=== PATIENT | male | born 1950 | race Caucasian/White ===

== ENCOUNTER → 2016-07-31 | Outpatient (CLI) | payer OTHER, MEDICARE ==
[~2016-07-31] VITALS: Ht 175.3 cm; Wt 111.1 kg
[~2016-07-31] MED LIST: CATHETER FLUSH 10 ML SYR IV PRN; REGADENOSON 0.4 MG/5 ML SYR (LEXISCAN) IV ONE
[2016-07-31 08:57] VITALS: BP 176/81
[2016-07-31 09:07] VITALS: BP 136/64
[2016-07-31 09:09] VITALS: BP 159/76
--- NOTE | 2016-08-01 08:39 | ECHOCARDIOGRAPHY REPORT ---
PROCEDURE PHYSICIAN: ILIA BAIRD DATE OF PROCEDURE: 07/31/2016 TWO DIMENSIONAL ECHOCARDIOGRAM REPORT PRIMARY PHYSICIAN: OTHER PHYSICIAN: REFERRING PHYSICIAN: Dr. Ignacio ORDERING PHYSICIAN: INDICATION FOR THE PROCEDURE: MEASUREMENTS DERIVED VALUES LV DIAMETER (LAX) NORMALS NORMALS Diastolic 5 (3.6-5.2) Eject. Fract. 60% (60%+/-6%) Systolic (2.3-3.9) Diastolic Vol. % Shortening (0.22-0.42) Systolic Vol. Aortic Root IVS THICKNESS Diastolic 1.3 (0.6-1.1) LVPW THICKNESS Diastolic 1.3 (0.6-1.1) LA DIAMETER Systolic 5 (2.1-3.7) FINDINGS: 1. Technical quality is good. 2. The left ventricle is normal in size with moderate left ventricular hypertrophy noted diffusely. Systolic function appeared to be normal. Estimated ejection fraction 60%. 3. The left atrium is dilated. No clot or thrombus were seen within the left atrium. 4. The right atrium and right ventricle are normal in size. No clot or thrombus were seen within the right side. 5. Mitral valve is normal in morphology with mild mitral regurgitation noted by color Doppler flow. No mitral valve prolapse. No mitral valve stenosis. 6. Aortic valve leaflets were not well visualized. No significant aortic stenosis or regurgitation was seen. 7. Tricuspid valve is normal in morphology with mild tricuspid regurgitation noted by color Doppler flow. Doppler across the tricuspid valve estimated the pulmonary artery pressure of 18+ right atrial pressure. 8. Pulmonic valve is functioning normally. 9. No pericardial effusion. IN CONCLUSION: 1. Moderate left ventricular hypertrophy noted diffusely. Systolic function appeared to be normal. Estimated ejection fraction 60%. 2. Mild mitral and tricuspid regurgitation. 3. Estimated pulmonary artery pressure of 25 mmHg. Job ID: [id number] Dictated Date: 08/01/2016 08:02:00 It Service Technician Date: 08/01/2016 08:36:43 / jaclyn
--- NOTE | 2016-08-02 08:49 | STRESS TEST ---
PROCEDURE PHYSICIAN: ILIA BAIRD DATE OF PROCEDURE: 07/31/2016 NUCLEAR MYOVIEW REPORT: REFERRING PHYSICIAN: Dr. Ignacio IN SUMMARY: The patient was injected with 10.83 mCi of technetium 99 Myoview and the resting images were obtained. Then the patient received a stress dose of 33 mCi of technetium 99 Myoview. The test was supervised by Dr. Ignacio. The resting and stress images were reviewed and compared in the short axis, horizontal long axis, and vertical long axis views. Review of the images showed diaphragmatic attenuation with good radiotracer uptake, typical male pattern. No significant ischemia or infarction was seen. SSS is 1, TID value 1.03. On the gated images, the left ventricle appeared to be normal size with normal contractility. Calculated ejection fraction 56%. IN CONCLUSION: 1. Typical male pattern with no ischemia or infarction on SPECT images. 2. Normal left ventricular size with normal contractility. Calculated ejection fraction 56%. Job ID: [id number] Dictated Date: 08/01/2016 16:58:56 Wall Taper Date: 08/02/2016 08:46:43 / jaclyn
== END ==
LOC: CARD 07:16
PROVIDERS: ATTEND Internal Medicine
DX: I10 Essential (primary) hypertension (principal); R53.83 Other fatigue
CPT/HCPCS: 78452; 93017; 93306

== ENCOUNTER 2016-09-06 09:00 | Outpatient (CLI) | payer OTHER, MEDICARE ==
[~2016-09-06] VITALS: Ht 175.3 cm; Wt 111.1 kg
[2016-09-06] MEDS ORDERED: VENL150C PO (09:21)
[2016-09-06] MEDS ORDERED: HYDR50TA76 PO (09:21)
[2016-09-06] MEDS ORDERED: LEVO1CAP11 PO (09:21)
[2016-09-06] MEDS ORDERED: ACYC400T PO (09:21)
[2016-09-06] MEDS ORDERED: PENI500T PO (09:21)
[2016-09-06] MEDS ORDERED: DOXA8TAB73 PO (09:21)
[2016-09-06] MEDS ORDERED: NYST50002 PO (09:21)
[2016-09-06] MEDS ORDERED: FLUC100T6 PO (09:21)
[2016-09-06] MEDS ORDERED: LOSA100T28 PO (09:21)
[2016-09-06] MEDS ORDERED: THYR65TA5 PO (09:21)
[2016-09-06] MEDS ORDERED: POTA10TA14 PO (09:21)
[2016-09-07] MEDS ORDERED: HYDR-3812 PO (10:01)
[2016-09-07] MEDS ORDERED: HYDR-3924 PO (13:23)
[2016-09-07] MEDS ORDERED: OMEG-160 PO (13:23)
== END 2016-09-06 09:34 ==
LOC: PREOP 09:00
PROVIDERS: ATTEND Surgery
DX: Z01.818 Encounter for other preprocedural examination (principal); K80.20 Calculus of gallbladder without cholecystitis without obstruction

== ENCOUNTER 2016-09-07 07:27 | Day surgery (SDC) | payer OTHER, MEDICARE ==
[~2016-09-07] VITALS: Ht 175.3 cm; Wt 111.1 kg
[~2016-09-07 07:27] MED LIST changes: +ACYC400T PO; -CATHETER FLUSH 10 ML SYR IV PRN; +DOXA8TAB73 PO; +FLUC100T6 PO; +HYDR50TA76 PO; +LEVO1CAP11 PO; +LOSA100T28 PO; +NYST50002 PO; +PENI500T PO; +POTA10TA14 PO; -REGADENOSON 0.4 MG/5 ML SYR (LEXISCAN) IV ONE; +THYR65TA5 PO; +VENL150C PO
--- NOTE | 2016-09-07 07:52 | Progress Note-Pre Operative ---
Pre-Operative Progress Note H&P Reviewed The H&P was reviewed, patient examined and no changes noted. Date H&P Reviewed: September 07, 2016 Time H&P Reviewed: 07:52 Pre-Operative Diagnosis: Gallstone LAUREN ARDON MD September 07, 2016 7:52 am
[2016-09-07] MEDS ORDERED: BUP/EPI 0.25% 1:200,000 (MARCAINE) 30 ML VIAL ONE (07:57)
[2016-09-07 08:10] VITALS: BP 170/89
[2016-09-07] MEDS: LACTATED RINGERS 1,000 ML IV PRN ×2 (08:10→08:34)
[2016-09-07] MEDS ORDERED: ceFAZolin 2 GM/NS 50 ML IV ONE (08:15)
[2016-09-07] MEDS ORDERED: metroNIDAZOLE 500 MG/100 ML IVPB (PRE-MIX) IV ONE (08:15)
[2016-09-07 08:18] LABS: RED BLOOD COUNT 4.28 10^6/uL (4.35-5.85); RED CELL DISTRIBUTION WIDTH 14.3 % (10.0-14.5); WHITE BLOOD COUNT 6.1 10^3/uL (4.3-11.0)
[2016-09-07] MEDS ORDERED: MIDAZOLAM 2 MG/2 ML (VERSED) VIAL ONE (08:38)
[2016-09-07] MEDS ORDERED: LACTATED RINGERS 1,000 ML IV ONE ×2 (08:38→09:32)
[2016-09-07] MEDS ORDERED: SUCCINYLCHOLINE INJ 100 MG/5 ML SYR ONE (08:38)
[2016-09-07] MEDS ORDERED: LIDOCAINE PF 2% 10 ML (XYLOCAINE) AMP ONE (08:38)
[2016-09-07] MEDS ORDERED: fentaNYL INJECTION 100 MCG/2 ML AMP ONE (08:38)
[2016-09-07] MEDS ORDERED: proPOfol 200 MG/20 ML (DIPRIVAN) VIAL IV ONE (08:38)
[2016-09-07] MEDS ORDERED: ONDANSETRON 4 MG/2 ML (SDV) Z0FRAN ONE (08:38)
[2016-09-07] MEDS ORDERED: ROCURONIUM 50 MG/5 ML (ZEMURON) VIAL IV ONE (08:38)
[2016-09-07 08:46] LABS: ALBUMIN 3.9 G/DL (3.2-4.5); BILIRUBIN,TOTAL 0.9 MG/DL (0.1-1.0); CALCIUM 9.1 MG/DL (8.5-10.1); CREATININE SERUM 1.62 MG/DL (0.60-1.30); POTASSIUM 3.9 MMOL/L (3.6-5.0); TOTAL PROTEIN 6.8 G/DL (6.4-8.2)
[2016-09-07] MEDS ORDERED: GLYCOPYRROLATE 0.2 MG/ML (ROBINUL) 2 ML VIAL ONE (09:50)
[2016-09-07] MEDS ORDERED: SEVOFLURANE (ULTANE) 15 ML INHAL SOLN ONE (09:50)
[2016-09-07] MEDS ORDERED: NEOSTIGMINE (BLOXIVERZ ) 1 MG/1ML 10 ML VIAL ONE (09:50)
--- NOTE | 2016-09-07 09:57 | Progress Note-Post Operative ---
Post-Operative Progess Note Surgeon (s)/Pick Up Worker (s) Surgeon LAUREN ARDON MD Pick Up Worker: not applicable Pre-Operative Diagnosis Gallstone Post-Operative Diagnosis gallstone. Chronic cholecystitis Procedure & Operative Findings Date of Procedure 09/07/16 Procedure Performed/Findings robotic-assisted cholecystectomy Anesthesia Type Gen. Estimated Blood Loss Estimated blood loss (mL): minimal Specimens/Packing Specimens Removed gallbladder LAUREN ARDON MD September 07, 2016 9:57 am
[2016-09-07] MEDS ORDERED: LACTATED RINGERS 1,000 ML IV SCH (09:58)
[2016-09-07] MEDS ORDERED: PATIENT MAY USE OWN MEDS, ALL PO SCH (10:00)
[2016-09-07] MEDS ORDERED: ONDANSETRON 4 MG/2 ML (SDV) Z0FRAN IVP PRN ×2 (10:00→10:15)
[2016-09-07] MEDS ORDERED: fentaNYL INJECTION 100 MCG/2 ML AMP IV PRN (10:00)
[2016-09-07] MEDS ORDERED: HYDR-3812 PO (10:01)
--- NOTE | 2016-09-07 10:02 | Discharge Inst-Simple/Standard ---
Discharge Inst-Standard Discharge Medications New, Converted or Re-Newed RX: RX on Chart Patient Instructions/Follow Up Plan of Care/Instructions/FU: incentive spirometry. Dressings off in a.m. Follow-up in 3 weeks Activity as Tolerated: Yes Discharge Diet: No Restrictions LAUREN ARDON MD September 07, 2016 10:02 am
[2016-09-07] MEDS ORDERED: fentaNYL INJECTION 100 MCG/2 ML AMP IVP PRN (10:15)
[2016-09-07 12:04] VITALS: BP 167/82
[2016-09-07] MEDS ORDERED: HYDR-3924 PO (13:23)
[2016-09-07] MEDS ORDERED: OMEG-160 PO (13:23)
--- NOTE | 2016-09-07 13:27 | OPERATIVE REPORT ---
DATE OF SERVICE: 09/07/2016 PREOPERATIVE DIAGNOSIS: Gallstone. POSTOPERATIVE DIAGNOSES: 1. Gallstone. 2. Chronic cholecystitis OPERATION: Robotic-assisted cholecystectomy. SURGEON: Lauren Ardon MD ANESTHESIA: General. BLOOD LOSS: Minimal. FLUIDS: 1400 mL of crystalloid. TYPE OF WOUND: Type 2 (clean-contaminated wound). INDICATION FOR PROCEDURE: This gentleman presented with a large gallstone impacted in the neck of the gallbladder with very minimal symptoms. To avoid complications, he was offered cholecystectomy using minimally invasive technique with robotic assistance. Informed consent was obtained after reviewing the operation in details and complications of wound infection and bile leak. DESCRIPTION OF PROCEDURE: He was placed supine on the operating room table and general anesthesia induced using an endotracheal tube. Two grams of Ancef and 500 mg of Flagyl were administered intravenously as prophylaxis against wound infection. Sequential compression devices were placed around his legs, to minimize the risk of venous thrombosis. Abdomen was prepared and draped in the usual sterile manner. Pneumoperitoneum was established using a Veress needle introduced over the supraumbilical region. Intraabdominal pressure was maintained at 15 mmHg using carbon dioxide insufflation. A 12 mm trocar was placed and anatomy visualized using the three-dimensional, high-definition laparoscope associated with Da Rober system. Under direct view, I placed an 8 mm cannula over each side of the abdomen, followed by a 5 mm trocar in the left upper quadrant. The patient was then turned into reverse Trendelenburg position with the right side tilted above. The robotic system was then docked in place. Laparoscopic survey onfirmed the gallbladder with chronic thickening due to chronic cholecystitis. The fundus was retracted cephalad and the infundibulum grasped with Cardiae forceps. Thickened peritoneum overlying Calot's triangle was incised using hook cautery, delineating the cystic duct and artery. Both were divided between locking clips. Cholecystectomy was then completed using hook cautery. The gallbladder was then placed in an Endocatch bag and removed via the supraumbilical trocar site. Subsequently, the fascia over this incision was closed using #1 Vicryl under direct view, using an Endoclose device. Incisions were closed using 4-0 Vicryl, in a subcuticular fashion. Then, 0.025% Marcaine with epinephrine was infiltrated along the incisions, both preemptively and at the conclusion of the operation. He tolerated the procedure well, was extubated in the operating room and taken to the recovery room in stable condition. Needle, sponges and instruments were correct at the end of the operation. Job ID: [id number] DocumentID: [id number] Dictated Date: 09/07/2016 09:54:28 Rn Unit Manager Date: 09/07/2016 13:26:44 Dictated By: LAUREN ARDON MD MTDD
[2016-09-07] MEDS: HYDROcodone/APAP 5 MG/325 MG (LORTAB) TAB PO PRN ×2 (13:51→15:46)
== END 2016-09-07 15:46 | disposition home or self-care (01) ==
LOC: SDC 07:27 → 4TH 11:15 → SDC 15:46 → ENPENDDIS 09-08 10:00
PROVIDERS: ATTEND Surgery
DX: K80.10 Calculus of gallbladder with chronic cholecystitis without obstruction (principal); I10 Essential (primary) hypertension; E03.9 Hypothyroidism, unspecified; G47.33 Obstructive sleep apnea (adult) (pediatric); Z79.899 Other long term (current) drug therapy
CPT/HCPCS: 36415; 80053; 85027; 87081

== ENCOUNTER 2017-02-07 05:34 | Outpatient (CLI) | payer OTHER, MEDICARE ==
[~2017-02-07] VITALS: Ht 175.3 cm; Wt 111.1 kg
[~2017-02-07 05:34] MED LIST changes: +HYDR-3812 PO; +HYDR-3924 PO; +OMEG-160 PO
== END 2017-02-07 13:01 ==
LOC: PREOP 05:34
PROVIDERS: ATTEND Surgery
DX: Z01.818 Encounter for other preprocedural examination (principal); K21.9 Gastro-esophageal reflux disease without esophagitis; Z86.010 Personal history of colon polyps; Z85.038 Personal history of other malignant neoplasm of large intestine; Z80.0 Family history of malignant neoplasm of digestive organs

== ENCOUNTER 2017-02-11 08:20 | Day surgery (SDC) | payer OTHER, MEDICARE ==
[~2017-02-11] VITALS: Ht 175.3 cm; Wt 111.1 kg
[2017-02-11 08:40] VITALS: BP 152/68
[2017-02-11] MEDS ORDERED: NS IV 500 ML 500 ML IV ONE (08:45)
[2017-02-11] MEDS ORDERED: CHLO25TA22 PO (08:59)
[2017-02-11] MEDS ORDERED: LIOT5TAB3 PO (08:59)
[2017-02-11] MEDS ORDERED: LYSI500T37 PO (08:59)
[2017-02-11] MEDS ORDERED: SULF1TAB35 PO (09:07)
[2017-02-11] MEDS ORDERED: MIDAZOLAM 2 MG/2 ML (VERSED) VIAL ONE ×2 (09:38)
[2017-02-11] MEDS ORDERED: fentaNYL INJECTION 100 MCG/2 ML AMP ONE ×2 (09:38)
[2017-02-11] MEDS ORDERED: NS IV 500 ML 500 ML ONE (10:01)
[2017-02-11] MEDS: MIDAZOLAM 2 MG/2 ML (VERSED) VIAL IVP PRN ×4 (10:15→10:32)
[2017-02-11] MEDS: fentaNYL INJECTION 100 MCG/2 ML AMP IVP PRN ×4 (10:16→10:31)
--- NOTE | 2017-02-11 10:57 | History & Physicial ---
History of Present Illness History of Present Illness Reason for visit/HPI to undergo an upper endoscopy regarding symptoms of gastroesophageal reflux and concomitant screening colonoscopy. He has a personal history of polyps and family history of colon cancer. Date of Admission Date Seen by Provider: Feb 11, 2017 Time Seen by Provider: 09:45 I consulted on this patient on 02/11/17 10:52 Attending Physician Lauren Ardon MD Admitting Physician Jose Antonio Ignacio DO Consult Allergies and Home Medications Allergies Coded Allergies: No Known Allergies (Unverified Allergy, Unknown, 07/31/16) Home Medications Acyclovir 400 Mg Tablet, 400 MG PO HS, (Reported) Chlorthalidone 25 Mg Tablet, 25 MG PO DAILY, (Reported) Doxazosin Mesylate 8 Mg Tablet, 8 MG PO HS, (Reported) Fluconazole 100 Mg Tablet, 100 MG PO WEEK, (Reported) TAKES ON MONDAYS Hydralazine HCl 50 Mg Tablet, 50 MG PO TID, (Reported) Levomefolate/B6/B12/Algal Oil 1 Each Capsule, 1 CAP PO BID, (Reported) Liothyronine Sodium 5 Mcg Tablet, 5 MCG PO BID, (Reported) Lysine HCl 500 Mg Tablet, 500 MG PO BID, (Reported) Nystatin 500,000 Unit Tablet, 500,000 UNIT PO QID, (Reported) [place]-3/Dha/Epa/Fish Oil 1 Each Capsule, 1,000 MG PO HS, (Reported) Penicillin V Potassium 500 Mg Tablet, 500 MG PO TIDWM, (Reported) Potassium Chloride 10 Meq Tab.er.prt, 10 MEQ PO DAILY, (Reported) Sulfamethoxazole/Trimethoprim 1 Each Tablet, 1 EACH PO BID, (Reported) Thyroid,Pork 65 Mg Tablet, 65 MG PO DAILY, (Reported) Venlafaxine HCl 150 Mg Cap.er.24h, 150 MG PO HS, (Reported) Past Ikqtymn-Mosumd-Vezmgo Hx Patient Social History Marrital Status: Employed/Student: employed Alcohol Use: Denies Use Recreational Drug Use: No Smoking Status: Never a Smoker Recent Foreign Travel: No Contact w/other who traveled: No Recent Hopitalizations: No Recent Infectious Disease Expo: No Seasonal Allergies Seasonal Allergies: Yes Surgeries Yes Eye Surgery, Gallbladder Respiratory Currently Using CPAP: Yes Cardiovascular Yes Hypertension Neurological No Reproductive System Hx Reproductive Disorders: No Gastrointestinal Yes Gastroesophageal Reflux, Chronic Constipation, Polyps Musculoskeletal Yes Arthritis, Chronic Back Pain Cancer No Reviewed Nursing Assessment Reviewed/Agree w Nursing PMH: Yes Family Medical History Significant Family History: Cancer Constitutional: no symptoms reported EENTM: no symptoms reported Respiratory: no symptoms reported Cardiovascular: no symptoms reported Gastrointestinal: abdominal pain (LLQ), constipation, nausea, vomiting Genitourinary: no symptoms reported Musculoskeletal: no symptoms reported Skin: rash Psychiatric/Neurological: No Symptoms Reported Physical Exam Vital Signs Vital Sign - Last 12Hours 02/11/17 08:40 Temp 98.5 Pulse 82 Resp 18 B/P (MAP) 152/68 Pulse Ox 97 O2 Delivery Room Air Capillary Refill : General Appearance: No Apparent Distress HEENT: Normal ENT Inspection Neck: Normal Inspection Respiratory: Lungs Clear Cardiovascular: Regular Rate, Rhythm, No JVD Gastrointestinal: Non Tender, Soft Rectal: Deferred Extremity: Normal Inspection Neurologic/Psychiatric: Alert, Oriented x3 Assessment/Plan Assessment and Plan gentleman with dysphagia and symptoms of reflux disease.personal history of polyps and family history of colon cancer. For EGD and concomitant colonoscopy Problems: LAUREN ARDON MD Feb 11, 2017 10:57 am
[2017-02-11] MEDS ORDERED: HURRICAINE EXT TUBE (BENZOCAINE) XX ONE (11:00)
--- NOTE | 2017-02-11 11:00 | Conscious Sedation/ASA ---
Conscious Sedation Pre-Proced Time Reviewed: 09:25 ASA Class: 2 Airway Mallampati Classification: ([place] appropriate class) I. II. III, IV Lungs Heart ASA score ASA 1: a normal healthy patient ASA 2: a patient with a mild systemic disease (mid diabetes, controlled hypertension, obesity ASA 3: a patient with a severe systemic disease that limits activity (angina , COPD, prior Myocardial infarction) ASA 4: a patient with an incapacitating disease that is a constant threat to life (CHF, renal failure) ASA 5: a moribund patient not expected to survive 24 hrs. (ruptured aneurysm) ASA 6: a declared brain patient whose organs are being harvested. For emergent operations, add the letter E after the classification Grade 2 Sedation Plan: Discussed options with patient/fam Note The patient is an appropriate candidate to undergo the planned procedure, sedation, and anesthesia. The patient immediately re-assessed prior to indication. LAUREN ARDON MD Feb 11, 2017 11:00 am
--- NOTE | 2017-02-11 11:05 | Endo Procedure Record ---
Endo Procedure Report Date of Procedure Feb 11, 2017 Surgeon (s) LAUREN ARDON MD Post Procedure/Op Diagnosis EGD: Distal esophageal stricture. Erosions along the greater curvature of stomach. Distal gastritis. Colonoscopy: 3 mm sessile polyp at the ascending colon. Very few sigmoid diverticula Procedure Performed EGD with antral biopsy Balloon dilatation of esophageal stricture Snare polypectomy Description of Procedure Anesthesia Type: Conscious Sedation Specimen(s) collected/removed antral mucosa for H. pylori. Right colon polyp Description of the Procedure Indication for procedures: This gentleman came in for an upper endoscopy to evaluate dysphagia along with symptoms of reflux disease and concomitant surveillance colonoscopy. He reported a personal history of polyps and a family history of colon cancer. Informed consent was obtained after reviewing the procedures in detail. Description of the procedure: EGD: He was placed in left lateral decubitus position and his vital signs were monitored. Conscious sedation was achieved using Versed and fentanyl.the flexible gastroscope was introduced down the esophagus, past the stomach, into the proximal duodenum. Findings Esophagus: Smooth, concentric distal esophageal stricture, peptic in nature. It was dilated to 20 mm using a balloon. Stomach: Multiple shallow erosions along the distal greater curvature. An antral biopsy was obtained for Helicobacter status Duodenum: Normal He tolerated the procedure well and was turned around in preparation for colonoscopy. Impression: Dysphagia due to distal esophageal peptic stricture. Balloon dilatation completed. Gastric erosions. Helicobacter status pending. Colonoscopy: Digital rectal examination was unremarkable. The colonoscope was then introduced into the rectum and advanced all the way up to the cecum. The scope was then withdrawn slowly and the mucosa examined in a systematic fashion Findings: Very few sigmoid diverticula 3 mm, sessile polyp at the ascending colon that was snared and retrieved. He tolerated the procedures well and was taken back to the nursing area in a stable condition. Impression: Personal history of polyps. Sessile right colon polyp excised. Positive family history. Recommend repeating in 2 years. Copies To: SHAHAB BAUTISTA XAVIER M MD Feb 11, 2017 11:05 am
--- NOTE | 2017-02-11 11:06 | Discharge Inst-Simple/Standard ---
Discharge Inst-Standard Discharge Medications New, Converted or Re-Newed RX: Other Patient Instructions/Follow Up Plan of Care/Instructions/FU: repeat colonoscopy in 2 years.follow up with his primary physician Activity as Tolerated: Yes Discharge Diet: No Restrictions LAUREN ARDON MD Feb 11, 2017 11:06 am
[2017-02-11 11:15] VITALS: BP 150/79
[2017-02-11 11:45] VITALS: BP 149/74
[2017-02-11 12:20] VITALS: BP 149/74
== END 2017-02-11 12:20 | disposition home or self-care (01) ==
LOC: ENDO 08:20
PROVIDERS: ATTEND Surgery
DX: K22.2 Esophageal obstruction (principal); K29.50 Unspecified chronic gastritis without bleeding; D12.2 Benign neoplasm of ascending colon; K57.30 Diverticulosis of large intestine without perforation or abscess without bleeding; I10 Essential (primary) hypertension; Z86.010 Personal history of colon polyps; Z80.0 Family history of malignant neoplasm of digestive organs
CPT/HCPCS: 88305; 88342

== ENCOUNTER 2017-07-17 14:30 | Inpatient (IN) | payer OTHER, MEDICARE ==
[~2017-07-17] VITALS: Ht 175.3 cm; Wt 115.8 kg
[~2017-07-17 14:30] MED LIST changes: -ALLO100T PO; -ASCO500T6 PO; -CHOL5000 PO; -CLOB15CR3 TP; -CLON0.2T PO; -CLOT15CR6 TP; -CNC1KV IJ; -CYCL10TA9 PO; -DOXY100T2 PO; -FLUT9.9S NS; -IPRA0.2S51 NEB; -LACT10SO64 PO; -LORA10TA44 PO; -LUTE6TAB PO; -MUPI15CR11 TP; +PIPERACILLIN SODIUM/TAZOBACTAM 4.5 GM in NS (IVPB) 100 ML IV NR; -RT-ALBUINH IH; -TR1C15 TP; -UBID1CAP53 PO
[2017-07-17] MEDS ORDERED: HYDROcodone/APAP 5 MG/325 MG (LORTAB) TAB PO PRN (14:45)
[2017-07-17] MEDS ORDERED: VANCOMYCIN INJECTION 2,000 MG in NS IV 500 ML 500 ML IV ONE (14:45)
[2017-07-17] MEDS ORDERED: VANCOMYCIN INJECTION 1,500 MG in NS IV 500 ML 500 ML IV ONE (14:45)
[2017-07-17] MEDS ORDERED: LACTULOSE SYRUP 10GM/15ML (ENULOSE) 30ML UDC PO PRN ×2 (14:45→18:15)
[2017-07-17] MEDS ORDERED: fentaNYL INJECTION 100 MCG/2 ML AMP IV PRN (14:45)
[2017-07-17] MEDS ORDERED: VANCOMYCIN INJECTION 750 MG in NS (IVPB) 250 ML IV ONE (14:45)
[2017-07-17] MEDS ORDERED: PHARMACY TO DOSE IV SCH (14:45)
[2017-07-17] MEDS ORDERED: VANCOMYCIN INJECTION 1,250 MG in NS (IVPB) 250 ML IV ONE (14:45)
[2017-07-17] MEDS ORDERED: ALPRAZolam 0.25 MG (XANAX) TAB PO PRN (14:45)
[2017-07-17] MEDS ORDERED: NS IV PRN (14:45)
[2017-07-17] MEDS ORDERED: ONDANSETRON 4 MG/2 ML (SDV) Z0FRAN IVP PRN (14:45)
[2017-07-17] MEDS ORDERED: VANCOMYCIN INJECTION 1,750 MG in NS IV 500 ML 500 ML IV ONE (14:45)
[2017-07-17] MEDS ORDERED: VANCOMYCIN INJECTION 1,000 MG in NS (IVPB) 250 ML IV ONE (14:45)
[2017-07-17 15:36] VITALS: BP 126/75
[2017-07-17 16:00] VITALS: BP 126/75
[2017-07-17] MEDS ORDERED: CYCL10TA9 PO (16:03)
[2017-07-17] MEDS ORDERED: RT-ALBUINH IH (16:03)
[2017-07-17] MEDS ORDERED: DOXY100T2 PO (16:03)
[2017-07-17] MEDS ORDERED: ALLO100T PO (16:03)
[2017-07-17] MEDS ORDERED: IPRA0.2S51 NEB (16:03)
[2017-07-17] MEDS ORDERED: CLON0.2T PO (16:03)
[2017-07-17] MEDS ORDERED: RT-ALBUTEROL SULF 2.5 MG/3 ML PRE-MIX VIAL INH PRN (16:15)
[2017-07-17] MEDS ORDERED: FLUT9.9S NS (16:29)
[2017-07-17] MEDS ORDERED: LUTE6TAB PO (16:30)
[2017-07-17] MEDS ORDERED: ASCO500T6 PO (16:30)
[2017-07-17] MEDS ORDERED: LACT10SO64 PO (16:30)
[2017-07-17] MEDS ORDERED: LORA10TA44 PO (16:30)
[2017-07-17] MEDS ORDERED: CHOL5000 PO (16:30)
[2017-07-17] MEDS ORDERED: CNC1KV IJ (16:30)
[2017-07-17] MEDS ORDERED: PIPERACILLIN SODIUM/TAZOBACTAM 4.5 GM in NS (IVPB) 100 ML IV NR (16:30)
[2017-07-17] MEDS ORDERED: CLOT15CR6 TP (16:30)
[2017-07-17] MEDS ORDERED: MUPI15CR11 TP (16:30)
[2017-07-17] MEDS ORDERED: UBID1CAP53 PO (16:30)
[2017-07-17] MEDS ORDERED: TR1C15 TP (16:30)
[2017-07-17] MEDS ORDERED: VANCOMYCIN 1,750 MG/NS 500 ML IVPB IV NR ×4 (16:30→17:00)
[2017-07-17] MEDS ORDERED: CLOB15CR3 TP (16:30)
[2017-07-17] MEDS: ENOXAPARIN 40 MG/0.4 ML (LOVENOX) SYR SC SCH (16:47)
[2017-07-17 16:59] LABS: BASOPHILS % (AUTO) 0 % (0-10); EOSINOPHILS % (AUTO) 0 % (0-10); HEMATOCRIT 29 % (40-54); LYMPHOCYTES # (AUTO) 1.5 X 10^3 (1.0-4.0); LYMPHOCYTES % (AUTO) 10 % (12-44); MEAN CORPUSCULAR HEMOGLOBIN 30 PG (25-34); MEAN CORPUSCULAR HGB CONC 35 G/DL (32-36); MEAN CORPUSCULAR VOLUME 88 FL (80-99); MEAN PLATELET VOLUME 9.4 FL (7.4-10.4); MONOCYTES # (AUTO) 1.4 X 10^3 (0.0-1.0); MONOCYTES % (AUTO) 9 % (0-12); NEUTROPHILS # (AUTO) 12.5 X 10^3 (1.8-7.8); NEUTROPHILS % (AUTO) 81 % (42-75); PLATELET COUNT 454 10^3/uL (130-400); RED BLOOD COUNT 3.31 10^6/uL (4.35-5.85); RED CELL DISTRIBUTION WIDTH 14.8 % (10.0-14.5); WHITE BLOOD COUNT 15.4 10^3/uL (4.3-11.0)
[2017-07-17 17:00] VITALS: BP 139/78
[2017-07-17] MEDS: NS IV 1000 ML 1,000 ML IV SCH (17:02)
[2017-07-17 17:05] LABS: INR 1.2 (0.8-1.4); PROTHROMBIN TIME PATIENT 15.4 SEC (12.2-14.7)
[2017-07-17 17:16] LABS: ALANINE AMINOTRANSFERASE 51 U/L (0-55); ALBUMIN 3.4 GM/DL (3.2-4.5); ALKALINE PHOSPHATASE 258 U/L (40-136); BILIRUBIN,TOTAL 1.6 MG/DL (0.1-1.0); BUN/CREATININE RATIO 14; CALCIUM 8.7 MG/DL (8.5-10.1); CARBON DIOXIDE 26 MMOL/L (21-32); CHLORIDE 93 MMOL/L (98-107); CREATININE SERUM 2.08 MG/DL (0.60-1.30); GFR ESTIMATED 32; GLUCOSE 125 MG/DL (70-105); POTASSIUM 4.2 MMOL/L (3.6-5.0); TOTAL PROTEIN 7.2 GM/DL (6.4-8.2)
[2017-07-17 17:18] LABS: SODIUM 125 MMOL/L (135-145)
[2017-07-17] MEDS ORDERED: LORATADINE 10 MG PO PRN (17:45)
[2017-07-17] MEDS ORDERED: CYCLOBENZAPRINE 10 MG (FLEXERIL) TAB PO PRN (17:45)
[2017-07-17] MEDS ORDERED: TRIAMCINOLONE 0.1% CR (KENALOG) 15 GM TUBE TP PRN (17:45)
[2017-07-17] MEDS ORDERED: LACTULOSE 10 GM/15 ML 30 ML POUR BOTTLE FOR ENEMA PO PRN (17:45)
[2017-07-17] MEDS ORDERED: RT-IPRATROPIUM (ATROVENT) 0.5MG/2.5ML AMP IH PRN ×2 (17:45→18:15)
[2017-07-17 18:00] VITALS: BP 156/84
[2017-07-17] MEDS ORDERED: NON-FORMULARY MEDICATION 1 EA EA (Potassium Chloride (Klor-Con M10) 10 MEQ) PO SCH (18:00)
[2017-07-17] MEDS ORDERED: KCL 10 MEQ TAB (MICRO K) PO SCH (18:00)
[2017-07-17] MEDS: ACETAMINOPHEN 500 MG TAB (TYLENOL) PO PRN (18:00)
[2017-07-17] MEDS ORDERED: LORATADINE (CLARITIN) 10 MG TAB PO PRN (18:15)
[2017-07-17] MEDS: RT-ALBUTEROL SULF 2.5 MG/3 ML PRE-MIX VIAL INH SCH ×2 (18:52→22:44)
[2017-07-17 19:00] VITALS: BP 128/95
--- NOTE | 2017-07-17 19:50 | Consultation-Cardiology ---
HPI-Cardiology Cardiology Consultation: Date of Consultation 07/17/17 Time Seen by Provider: 19:30 Date of Admission Attending Physician Harriet Mcadams DO Admitting Physician Jose Antonio Ignacio DO Consulting Physician ELIZA FREITAS MD, MA, FACP, FACC, [facility], [facility] HPI: Chief Complaint: Reason for consultation: H/o CAD, hypertension Physician requesting consult: Dr Mcadams 67 yo man admitted to Dr Mcadams around 3pm today with fever and malaise and a productive cough and a diagnosis of pneumonia. Symptoms have been present for several days/weeks We have been asked to see him for h/o CAD, but the patient does not describe any such history. Does report a family h/o CAD at a relatively early age Has chronic hypertension and renal failure. 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 Mr Irvin states he has been experiencing considerable postural dizziness on these med He notes exertional shortness of breath, slowly progressive for a couple of weeks He does not report ankle swelling He denies cp or symptoms consistent with PND Review of Systems-Cardiology Review of Systems Constitutional: lightheadedness, malaise, tiredness, No weight loss Eyes: No vision change Ears/Nose/Throat: No ear discharge, No nasal drainage, No recent hearing loss Respiratory: As described under HPI Cardiovascular: As described under HPI Gastrointestinal: constipation (chronic), diarrhea (chronic, intermittent), No nausea, No vomiting, No stool coloration changes Genitourinary: No dysuria, No hematuria, No urine frequency changes, No urine coloration changes Musculoskeletal: back pain (chronic) Skin: No rash Psychiatric/Neurological: No seizure, No focal weakness, No syncope Hematologic: No bleeding abnormalities WXP-Ktonco-Pykccq Hx Patient Social History Alcohol Use: Occasionally Uses Recreational Drug Use: No Smoking Status: Never a Smoker Recent Foreign Travel: No Recent Infectious Disease Expo: No Physical Abuse Screen: No Sexual Abuse: No Immunizations Up To Date Date of Pneumonia Vaccine: Feb 05, 2017 Date of Influenza Vaccine: Feb 05, 2017 Past Medical History PMH As described under Assessment. Family Medical History Family Medical History: He report a fam h/o of relatively early CAD, but is not able to provide details Allergies and Home Medications Allergies Coded Allergies: No Known Allergies (Unverified Allergy, Unknown, 07/31/16) Home Medications Acyclovir 400 Mg Tablet, 400 MG PO HS, (Reported) Albuterol Sulfate 1 Puff Puff, 2 PUFF IH Q4H PRN for SHORTNESS OF BREATH, ( Reported) 1 PUFF = 90 MCG Allopurinol 100 Mg Tablet, 100 MG PO DAILY, (Reported) Ascorbic Acid 500 Mg Tablet, 500 MG PO BID, (Reported) Chlorthalidone 25 Mg Tablet, 25 MG PO DAILY, (Reported) Cholecalciferol (Vitamin D3) 5,000 Unit Capsule, 10,000 UNIT PO TID, (Reported) Clobetasol Propionate/Emoll 15 Gm Cream..g., TP DAILY PRN for RASH, (Reported) Clonidine HCl 0.2 Mg Tablet, 0.2 MG PO TIDWM, (Reported) Clotrimazole/Betamethasone Dip 15 Gm Cream..g., TP DAILY PRN for BREAKOUT, ( Reported) Cyanocobalamin 1,000 Mcg/Ml Inj, 1,000 MCG IJ 1-2 X WEEKLY, (Reported) Cyclobenzaprine HCl 10 Mg Tablet, 10 MG PO TID PRN for MUSCLE SPASMS, (Reported) Doxazosin Mesylate 8 Mg Tablet, 8 MG PO HS, (Reported) Doxycycline Hyclate 100 Mg Tablet, 100 MG PO BID, (Reported) 10 DAY SUPPLY FILLED 07-16-17 Fluconazole 100 Mg Tablet, 100 MG PO [place], (Reported) Fluticasone Propionate 9.9 Ml [place].susp, 1 SPRAY NS DAILY, (Reported) 1 SPRAY EACH NARE DAILY Hydralazine HCl 50 Mg Tablet, 50 MG PO TIDWM, (Reported) Ipratropium [place] 0.2 Mg/1 Ml Solution, 0.2 MG NEB Q6H PRN for SHORTNESS OF BREATH, (Reported) Lactulose 10 Gm/15 Ml Solution, 1 TBS PO DAILY PRN for CONSTIPATION-3RD LINE, ( Reported) Levomefolate/B6/B12/Algal Oil 1 Each Capsule, 1 CAP PO BID, (Reported) Liothyronine Sodium 5 Mcg Tablet, 5 MCG PO 0800,1200, (Reported) Loratadine 10 Mg Tab.rapdis, 10 MG PO DAILY PRN for ALLERGIES, (Reported) Lutein 6 Mg Tablet, 6 MG PO DAILY, (Reported) Lysine HCl 500 Mg Tablet, 500 MG PO BID, (Reported) Mupirocin Calcium 15 Gm Cream..g., TP DAILY PRN for SORES, (Reported) Nystatin 500,000 Unit Tablet, 500,000 UNIT PO QID, (Reported) Penicillin V Potassium 500 Mg Tablet, 500 MG PO TIDWM, (Reported) Potassium Chloride 10 Meq Tab.er.prt, 10 MEQ PO 1800, (Reported) Thyroid,Pork 65 Mg Tablet, 65 MG PO DAILY, (Reported) Triamcinolone Acet 15 Gm Cr, TP DAILY PRN for RASH, (Reported) Ubidecarenone/Vit E Acetate 1 Each Capsule, 100 MG PO BID, (Reported) Venlafaxine HCl 150 Mg Cap.er.24h, 150 MG PO HS, (Reported) Patient Home Medication List Home Medication List Reviewed: Yes Physical Exam-Cardiology Physical Exam Vital Signs/I&O Vital Sign - Last 12Hours 07/17/17 07/17/17 07/17/17 07/17/17 15:34 15:36 15:36 15:55 Pulse 95 102 Pulse Ox 91 91 O2 Delivery Room Air Nasal Cannula O2 Flow Rate 2.00 07/17/17 07/17/17 07/17/17 07/17/17 16:00 16:00 17:00 18:00 Temp 101.5 Pulse 101 103 99 Resp 30 27 32 B/P (MAP) 126/75 (92) 139/78 (98) 156/84 (108) Pulse Ox 95 O2 Delivery Nasal Cannula Nasal Cannula O2 Flow Rate 0.00 2.00 07/17/17 07/17/17 18:52 19:36 Temp 98.8 Pulse Ox 95 O2 Delivery Nasal Cannula Nasal Cannula O2 Flow Rate 2.00 2.00 Capillary Refill : Constitutional: AAO x 3, well-developed, well-nourished HEENT: EOMI, hearing is well preserved, No xanthelasmas are seen Neck: No carotid bruit, carotid pulses are 2 + bilaterally, with good upstrokes Respiratory: No accessory muscle use, other (diminished air entry and some dullness to percussion at lung bases) Cardiovascular: regular rate-rhythm, S1 and S2, systolic murmur (soft MICHELLE at card base) Gastrointestinal: No tender, soft, No guarding, No rebound, audible bowel sounds Extremities: No clubbing, No cyanosis, No significant edema Neurologic/Psychiatric: oriented x 3, grossly intact, power is 5/5 both on sides Skin: No rash on exposed areas, No ulcerations on exposed areas Data Review Labs Laboratory Tests 07/17/17 16:35: Lactic Acid Level 0.81 07/17/17 16:45: White Blood Count 15.4H, Red Blood Count 3.31L, Hemoglobin 10.0L, Hematocrit 29L , Mean Corpuscular Volume 88, Mean Corpuscular Hemoglobin 30, Mean Corpuscular Hemoglobin Concent 35, Red Cell Distribution Width 14.8H, Platelet Count 454H, Mean Platelet Volume 9.4, Neutrophils (%) (Auto) 81H, Lymphocytes (%) (Auto) 10L , Monocytes (%) (Auto) 9, Eosinophils (%) (Auto) 0, Basophils (%) (Auto) 0, Neutrophils # (Auto) 12.5H, Lymphocytes # (Auto) 1.5, Monocytes # (Auto) 1.4H, Eosinophils # (Auto) 0.0, Basophils # (Auto) 0.0, Prothrombin Time 15.4H, INR Comment 1.2, Activated Partial Thromboplast Time 42H, Sodium Level 125*L, Potassium Level 4.2, Chloride Level 93L, Carbon Dioxide Level 26, Anion Gap 6, Blood Urea Nitrogen 29H, Creatinine 2.08H, Estimat Glomerular Filtration Rate 32 , BUN/Creatinine Ratio 14, Glucose Level 125H, Calcium Level 8.7, Total Bilirubin 1.6H, Aspartate Amino Transf (AST/SGOT) 50H, Alanine Aminotransferase (ALT/SGPT) 51, Alkaline Phosphatase 258H, Troponin I < 0.30, Total Protein 7.2, Albumin 3.4 Laboratory Tests 07/17/17 16:45 A/P-Cardiology Assessment/Admission Diagnosis Bilateral pneumonia, managed by Dr Mcadams Hyponatremia of unclear etiology, possibly SIADH, managed by Dr Mcadams Renal failure, probably CKD 4 Anemia of undetermined etiology, possibly related to CKD Hypertension, by history, but patient reporting postural dizziness on his current regimen Hypertensive cardiovascular disease (with cardiomegaly on CXR and LVH on echo) Echo of 07/31/16: Moderate left ventricular hypertrophy noted diffusely. Systolic function appeared to be normal. Estimated ejection fraction 60%. Mild mitral and tricuspid regurgitation. Estimated pulmonary artery pressure of 25 mmHg. No h/o CAD. Stress test of 07/31/16 did not show ischemia or infarction, LVEF 56% Discussion and Recomendations * He has multiple comorbidities * Reduce anti-htn agent due to postural hypotension * Treat pneumonia and hyponatremia * Monitor labs closely * I had a detailed discussion with him and his and answered questions Clinical Quality Measures DVT/VTE Risk/Contraindication: Risk Factor Score Per Nursin RFS Level Per Nursing on Admit: 2=Moderate ELIZA FREITAS MD FACP [facility] Jul 17, 2017 19:50
[2017-07-17 20:02] LABS: ABG BASE EXCESS -3.4 MMOL/L (-2.5-2.5); ABG OXYGEN SATURATION 97 % (94-100); ABG PCO2 28 MMHG (35-45); ABG PH 7.47 (7.37-7.43); ABG PO2 71 MMHG (79-93); ABG TCO2 20.5 MMOL/L (21.0-31.0)
[2017-07-17 20:03] LABS: ALLENS TEST POSITIVE; INSPIRED O2 2L; PATIENT TEMP 99.2; VENTILATOR NO
[2017-07-17] MEDS: doxAzosin 4 MG (CARDURA) TAB PO SCH (20:58)
[2017-07-17] MEDS: ACYCLOVIR 400 MG TABLET (ZOVIRAX) PO SCH (20:58)
[2017-07-17] MEDS: VENlafaxine XR 75 MG (EFFEXOR XR) CAP PO SCH (20:59)
[2017-07-17] MEDS ORDERED: NON-FORMULARY MEDICATION 1 EA EA (Doxazosin Mesylate 8 MG) PO SCH (21:00)
[2017-07-17] MEDS ORDERED: NON-FORMULARY MEDICATION 1 EA EA (Cholecalciferol (Vitamin D3) (Vitamin D3) 10,000 UNIT) PO SCH (21:00)
[2017-07-17] MEDS ORDERED: LYSINE HCL 500 MG PO SCH (21:00)
[2017-07-17] MEDS ORDERED: doxAzosin 4 MG (CARDURA) TAB PO SCH (21:00)
[2017-07-17] MEDS ORDERED: NON-FORMULARY MEDICATION 1 EA EA (Venlafaxine HCl (Effexor Xr) 150 MG) PO SCH (21:00)
[2017-07-17] MEDS: hydrALAZINE (APRESOLINE) 25 MG TAB PO SCH (21:02)
[2017-07-17 21:03] VITALS: BP 127/68
[2017-07-17] MEDS: PIPERACILLIN SODIUM/TAZOBACTAM 4.5 GM in NS (IVPB) 100 ML IV SCH (22:47)
[2017-07-18] VITALS (9 sets, daily range): BP systolic 121–157; BP diastolic 64–83
[2017-07-18 01:33] LABS: BILIRUBIN,URINE NEGATIVE (NEGATIVE); CLARITY,URINE CLEAR; GLUCOSE, URINE (UA) NEGATIVE (NEGATIVE); KETONES,URINE NEGATIVE (NEGATIVE); LEUKOCYTE ESTERASE ,URINE 2+ (NEGATIVE); NITRITE,URINE NEGATIVE (NEGATIVE); PH,URINE 6 (5-9); PROTEIN,URINE 2+ (NEGATIVE); UROBILINOGEN,URINE NORMAL (NORMAL)
[2017-07-18 01:35] LABS: COLOR,URINE YELLOW
[2017-07-18 01:40] LABS: BACTERIA,URINE TRACE /HPF; SQUAMOUS EPITHELIAL CELL,UR RARE /HPF
[2017-07-18] MEDS: ACETAMINOPHEN 500 MG TAB (TYLENOL) PO PRN ×2 (01:45→15:51)
[2017-07-18] MEDS: RT-ALBUTEROL SULF 2.5 MG/3 ML PRE-MIX VIAL INH SCH ×6 (02:10→22:15)
[2017-07-18 03:59] LABS: BASOPHILS % (AUTO) 0 % (0-10); EOSINOPHILS # (AUTO) 0.1 10^3/uL (0.0-0.3); EOSINOPHILS % (AUTO) 0 % (0-10); HEMATOCRIT 28 % (40-54); HEMOGLOBIN 9.4 G/DL (13.3-17.7); LYMPHOCYTES # (AUTO) 1.2 X 10^3 (1.0-4.0); LYMPHOCYTES % (AUTO) 10 % (12-44); MEAN CORPUSCULAR HEMOGLOBIN 30 PG (25-34); MEAN CORPUSCULAR HGB CONC 34 G/DL (32-36); MEAN CORPUSCULAR VOLUME 87 FL (80-99); MEAN PLATELET VOLUME 9.2 FL (7.4-10.4); MONOCYTES # (AUTO) 1.1 X 10^3 (0.0-1.0); MONOCYTES % (AUTO) 9 % (0-12); NEUTROPHILS # (AUTO) 9.9 X 10^3 (1.8-7.8); NEUTROPHILS % (AUTO) 81 % (42-75); PLATELET COUNT 422 10^3/uL (130-400); RED BLOOD COUNT 3.15 10^6/uL (4.35-5.85); RED CELL DISTRIBUTION WIDTH 14.6 % (10.0-14.5); WHITE BLOOD COUNT 12.3 10^3/uL (4.3-11.0)
[2017-07-18 04:31] LABS: BILIRUBIN,TOTAL 1.7 MG/DL (0.1-1.0); CALCIUM 8.3 MG/DL (8.5-10.1); CREATININE SERUM 2.03 MG/DL (0.60-1.30); POTASSIUM 3.5 MMOL/L (3.6-5.0); TOTAL PROTEIN 6.4 GM/DL (6.4-8.2)
[2017-07-18] MEDS: NS IV 1000 ML 1,000 ML IV SCH (04:54)
[2017-07-18] MEDS: THYROID 1 GRAIN (60 - 65 MG) TABLET PO SCH (06:53)
[2017-07-18] MEDS: hydrALAZINE (APRESOLINE) 25 MG TAB PO SCH ×3 (06:53→21:35)
[2017-07-18] MEDS: PIPERACILLIN SODIUM/TAZOBACTAM 4.5 GM in NS (IVPB) 100 ML IV SCH ×3 (06:53→21:35)
[2017-07-18] MEDS ORDERED: hydrALAZINE (APRESOLINE) 25 MG TAB PO SCH (07:00)
[2017-07-18] MEDS ORDERED: cloNIDine 0.2 MG (CATAPRES) TAB PO SCH (07:00)
[2017-07-18] MEDS ORDERED: NON-FORMULARY MEDICATION 1 EA EA (Hydralazine HCl 50 MG) PO SCH (07:00)
--- NOTE | 2017-07-18 07:54 | Diagnostic Imaging Report ---
INDICATION: Dyspnea and cough 0758 hours PA and lateral views of the chest were obtained. Comparison is made to the study of one day earlier. There is mild generalized cardiomegaly. Pulmonary vascularity is within normal limits. There is mild basilar atelectasis with blunting of both costophrenic sulci. No consolidation, pneumothorax or other adverse change is seen. IMPRESSION: Basilar atelectasis with small amount of bilateral pleural fluid or thickening, unchanged from previous study. Dictated by: Dictated on workstation # [id number]
[2017-07-18] MEDS ORDERED: NON-FORMULARY MEDICATION 1 EA EA (Liothyronine Sodium 5 MCG) PO SCH (08:00)
[2017-07-18] MEDS: ALLOPURINOL 100 MG (ZYLOPRIM) TAB PO SCH (08:48)
--- NOTE | 2017-07-18 08:52 | Progress Note-Cardiology ---
Cardiology SOAP Progress Note Subjective: State he feels better this morning than he did yesterday. Reports dizziness has improved following reduction in anti-hypertensive regimen. C/O chest tightness with coughing. C/O frequent lose cough. Objective: I&O/Vital Signs Vital Sign - Last 12Hours 07/18/17 07/18/17 07/18/17 07/18/17 04:00 06:04 06:09 07:00 Temp 98.8 Pulse 95 92 Resp 18 B/P (MAP) 157/83 (107) Pulse Ox 97 O2 Delivery Nasal Cannula Nasal Cannula Nasal Cannula O2 Flow Rate 2.00 0.50 0.50 07/18/17 07/18/17 07/18/17 07/18/17 08:00 09:00 09:00 10:00 Temp 99.7 Pulse 98 Resp 14 B/P (MAP) 121/67 (85) Pulse Ox 97 95 O2 Delivery Room Air Room Air Room Air Room Air 07/18/17 07/18/17 07/18/17 07/18/17 11:07 11:16 12:25 13:23 Temp 99.8 100.6 Pulse 98 96 Resp 20 18 B/P (MAP) 147/77 (100) 141/75 (97) Pulse Ox 96 95 96 O2 Delivery Room Air Room Air Room Air Room Air 07/18/17 14:20 Pulse 101 B/P (MAP) 134/67 (89) Intake and Output 07/18/17 00:00 Intake Total 500 ml Output Total 0 ml Balance 500 ml Weight (Pounds): 240 Weight (Ounces): 0.0 Weight (Calculated Kilograms): 108.188822 Constitutional: AAO x 3, well-developed, well-nourished Respiratory: No accessory muscle use, rhonchi (scattered), other (diminished air entry and some dullness to percussion at lung bases) Cardiovascular: regular rate-rhythm, S1 and S2, systolic murmur (soft MICHELLE at card base) Gastrointestional: No tender, soft, No guarding, No rebound, audible bowel sounds Extremities: No clubbing, No cyanosis, No significant edema Neurologic/Psychiatric: oriented x 3, grossly intact, power is 5/5 both on sides Skin: No rash on exposed areas, No ulcerations on exposed areas Results/Procedures: Labs Laboratory Tests 07/17/17 16:35: Lactic Acid Level 0.81 07/17/17 16:45: White Blood Count 15.4H, Red Blood Count 3.31L, Hemoglobin 10.0L, Hematocrit 29L , Mean Corpuscular Volume 88, Mean Corpuscular Hemoglobin 30, Mean Corpuscular Hemoglobin Concent 35, Red Cell Distribution Width 14.8H, Platelet Count 454H, Mean Platelet Volume 9.4, Neutrophils (%) (Auto) 81H, Lymphocytes (%) (Auto) 10L , Monocytes (%) (Auto) 9, Eosinophils (%) (Auto) 0, Basophils (%) (Auto) 0, Neutrophils # (Auto) 12.5H, Lymphocytes # (Auto) 1.5, Monocytes # (Auto) 1.4H, Eosinophils # (Auto) 0.0, Basophils # (Auto) 0.0, Prothrombin Time 15.4H, INR Comment 1.2, Activated Partial Thromboplast Time 42H, Sodium Level 125*L, Potassium Level 4.2, Chloride Level 93L, Carbon Dioxide Level 26, Anion Gap 6, Blood Urea Nitrogen 29H, Creatinine 2.08H, Estimat Glomerular Filtration Rate 32 , BUN/Creatinine Ratio 14, Glucose Level 125H, Calcium Level 8.7, Total Bilirubin 1.6H, Aspartate Amino Transf (AST/SGOT) 50H, Alanine Aminotransferase (ALT/SGPT) 51, Alkaline Phosphatase 258H, Troponin I < 0.30, Total Protein 7.2, Albumin 3.4 07/17/17 19:54: Blood Gas Puncture Site LEFT RADIAL, Blood Gas Patient Temperature 99.2, Arterial Blood pH 7.47H, Arterial Blood Partial Pressure CO2 28L, Arterial Blood Partial Pressure O2 71L, Arterial Blood HCO3 20L, Arterial Blood Total CO2 20.5L, Arterial Blood Oxygen Saturation 97, Arterial Blood Base Excess -3.4L , Leno Test POSITIVE, Blood Gas Ventilator Setting NO, Blood Gas Inspired Oxygen 2L 07/18/17 01:30: Urine Color YELLOW, Urine Clarity CLEAR, Urine pH 6, Urine Specific [place] 1.010L, Urine Protein 2+H, Urine Glucose (UA) NEGATIVE, Urine Ketones NEGATIVE, Urine Nitrite NEGATIVE, Urine Bilirubin NEGATIVE, Urine Urobilinogen NORMAL, Urine Leukocyte Esterase 2+H, Urine RBC (Auto) 5+H, Urine RBC 5-10H, Urine WBC 2 -5, Urine Squamous Epithelial Cells RARE, Urine Crystals NONE, Urine Bacteria TRACE, Urine Casts NONE, Urine Mucus SMALLH, Urine Culture Indicated NO 07/18/17 03:30: White Blood Count 12.3H, Red Blood Count 3.15L, Hemoglobin 9.4L, Hematocrit 28L , Mean Corpuscular Volume 87, Mean Corpuscular Hemoglobin 30, Mean Corpuscular Hemoglobin Concent 34, Red Cell Distribution Width 14.6H, Platelet Count 422H, Mean Platelet Volume 9.2, Neutrophils (%) (Auto) 81H, Lymphocytes (%) (Auto) 10L , Monocytes (%) (Auto) 9, Eosinophils (%) (Auto) 0, Basophils (%) (Auto) 0, Neutrophils # (Auto) 9.9H, Lymphocytes # (Auto) 1.2, Monocytes # (Auto) 1.1H, Eosinophils # (Auto) 0.1, Basophils # (Auto) 0.0, Sodium Level 128L, Potassium Level 3.5L, Chloride Level 97L, Carbon Dioxide Level 20L, Anion Gap 11, Blood Urea Nitrogen 26H, Creatinine 2.03H, Estimat Glomerular Filtration Rate 33, BUN/ Creatinine Ratio 13, Glucose Level 126H, Calcium Level 8.3L, Total Bilirubin 1.7H, Aspartate Amino Transf (AST/SGOT) 46H, Alanine Aminotransferase (ALT/SGPT ) 46, Alkaline Phosphatase 249H, Total Protein 6.4, Albumin 3.0L Procedures NAME: SHASHI HERNANDEZ [facility] REC#: [id number] PT STATUS: ADM IN : 1950 PHYSICIAN: FRANCIS RUIZ DO ADMIT DATE: 07/17/17/ICU Draft Date of Exam:07/18/17 CHEST PA/LAT (2 VIEW) INDICATION: Dyspnea and cough 0758 hours PA and lateral views of the chest were obtained. Comparison is made to the study of one day earlier. There is mild generalized cardiomegaly. Pulmonary vascularity is within normal limits. There is mild basilar atelectasis with blunting of both costophrenic sulci. No consolidation, pneumothorax or other adverse change is seen. IMPRESSION: Basilar atelectasis with small amount of bilateral pleural fluid or thickening, unchanged from previous study. Dictated on workstation # [id number] Dict: 07/18/17 0750 Trans: 07/18/17 0753 KRISTIN [id number] Interpreted by: KIMBERLY IBANEZ MD Electronically signed by: A/P: Assessment: Bilateral pneumonia, managed by Dr Ruiz Hyponatremia of unclear etiology, possibly SIADH, managed by Dr Ruiz Renal failure, probably CKD 4 Anemia of undetermined etiology, possibly related to CKD Hypertension, by history, but patient reporting postural dizziness on his current regimen Hypertensive cardiovascular disease (with cardiomegaly on CXR and LVH on echo) Echo of 07/31/16: Moderate left ventricular hypertrophy noted diffusely. Systolic function appeared to be normal. Estimated ejection fraction 60%. Mild mitral and tricuspid regurgitation. Estimated pulmonary artery pressure of 25 mmHg. No h/o CAD. Stress test of 07/31/16 did not show ischemia or infarction, LVEF 56% Plan: * He has multiple comorbidities as listed above * Reduction in anti-htn agents due to postural hypotension * Treat pneumonia and hyponatremia as per medical services * Monitor labs closely * Dr. Jimenez had a detailed discussion with him and his and answered questions * Replace potassium Physician Assessment Physician Assessment Feels somewhat better today. Postural dizziness has improved. No cp. Still malaise and shortness of breath Lungs: good bilat AE; diminished at the bases Cor: reg Ext: no c/c/e A&R: * As documented in our note above that I updated (italics) and as noted below * Replenish K * Monitor labs * Monitor bp * I spoke with him and his and answered questions TIM WOODS Jul 18, 2017 08:52 ELIZA JIMENEZ MD [facility] Jul 18, 2017 15:05
[2017-07-18] MEDS ORDERED: NON-FORMULARY MEDICATION 1 EA EA (Fluticasone Propionate (Flonase Allergy Relief) 1 SPRAY) NS SCH (09:00)
[2017-07-18] MEDS ORDERED: THYROID PORK 65 MG PO SCH (09:00)
[2017-07-18] MEDS: FLUTICASONE NASAL SPRAY (FLONASE) 16 GM BTL NS SCH (09:21)
[2017-07-18] MEDS ORDERED: KCL 20 MEQ TAB (K-DUR) PO NR (10:17)
--- NOTE | 2017-07-18 11:35 | History & Physical-Hospitalist ---
History of Present Illness HPI/Chief Complaint CC: Bilateral pneumonia failed Levaquin HPI: This is a 67-year-old white male clinic patient of Dr. 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 Ignacio's clinic with a fever of 102 and chest x-ray revealing bilateral pneumonia that had failed and progressed on Levaquin antibiotics. To note he reported to urgent care at [place] 4 times and to the ER in [place] twice prior to finally coming to Dr. Ignacio finding progressive pneumonia and findings consistent with leukocytosis and acute renal failure with dehydration and hypotension requiring admission to the hospital for definitive treatment. He does see Dr. Overton nephrology for severe hypertension and creatinine elevation with chronic renal insufficiency and is currently well-controlled on blood pressure medications. Patient does have a history of Lyme disease which Dr. Ignacio manages. His reports that he began having a chronic cough after right shoulder surgery by Dr. Lucas at [place] and having significant cough since that time but all the workups in the ER and urgent care had been normal not showing any infiltrate. Source: patient Exam Limitations: no limitations Date Seen 07/18/17 Time Seen by Provider: 10:15 Attending Physician Harriet Ruiz DO PCP Jose Antonio Ignacio DO Referring Physician Date of Admission Jul 17, 2017 at 15:10 Home Medications & Allergies Home Medications Reviewed patient Home Medication Reconciliation performed by pharmacy medication reconciliations refrigeration technician and/or nursing. Patients Allergies have been reviewed. 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) Alcohol Use: Occasionally Uses Number of Drinks Today: 0 Recreational Drug Use: No Smoking Status: Never a Smoker Physical Abuse Screen: No Sexual Abuse: No Recent Foreign Travel: No Contact w/other who traveled: No Recent Hopitalizations: No Recent Infectious Disease Expo: No Immunizations Up To Date Date of Pneumonia Vaccine: Feb 05, 2017 Date of Influenza Vaccine: Feb 05, 2017 Seasonal Allergies Seasonal Allergies: Yes Past Medical History Surgeries: Eye Surgery, Gallbladder Currently Using CPAP: Yes Cardiac: Hypertension Reproductive: No Gastrointestinal: Gastroesophageal Reflux, Chronic Constipation, Polyps Musculoskeletal: Arthritis, Chronic Back Pain History of Blood Disorders: No Family History Cancer, Hypertension Review of Systems Constitutional: see HPI, chills, dizziness, fever, malaise, weakness EENTM: no symptoms reported Respiratory: cough, short of breath Cardiovascular: no symptoms reported Gastrointestinal: no symptoms reported Genitourinary: no symptoms reported Musculoskeletal: no symptoms reported Skin: no symptoms reported Psychiatric/Neurological: No Symptoms Reported All Other Systems Reviewed Negative Unless Noted: Yes Physical Exam Physical Exam Vital Signs Vital Signs - First Documented 07/17/17 07/17/17 07/17/17 07/17/17 15:34 15:36 15:55 16:00 Temp 101.5 Pulse 95 Resp 30 B/P (MAP) 126/75 (92) Pulse Ox 91 O2 Delivery Room Air O2 Flow Rate 2.00 Capillary Refill : General Appearance: No Apparent Distress, WD/WN, Chronically ill Eyes: Bilateral Eye Normal Inspection, Bilateral Eye PERRL HEENT: PERRL/EOMI, Normal ENT Inspection, Pharynx Normal Neck: Full Range of Motion, Normal Inspection, Non Tender, Supple, Carotid Bruit Respiratory: Chest Non Tender, No Accessory Muscle Use, No Respiratory Distress , Crackles, Wheezing Cardiovascular: Regular Rate, Rhythm, No Edema, No Gallop, No JVD, No Murmur, Normal Peripheral Pulses Gastrointestinal: Normal Bowel Sounds, No Organomegaly, No Pulsatile Mass, Non Tender, Soft Back: Normal Inspection, No CVA Tenderness, No Vertebral Tenderness Extremity: Normal Capillary Refill, Normal Inspection, Normal Range of Motion, Non Tender, No Calf Tenderness, No Pedal Edema Neurologic/Psychiatric: Alert, Oriented x3, No Motor/Sensory Deficits, Normal Mood/Affect Skin: Normal Color, Warm/Dry Lymphatic: No Adenopathy Results Results/Procedures Labs Laboratory Tests 07/17/17 16:45 07/18/17 03:30 Patient resulted labs reviewed. Assessment/Plan Admission Diagnosis Bilateral pneumonia failed Levaquin as outpatient for 10 days Hypertension Chronic renal insufficiency sees nephrology Dr. Overton Acute dehydration Acute hypotension due to dehydration Fever Plan: IV fluids to be hep-locked Transfer to fourth floor Oxygen supplementation Nebulizer treatments Home medications Admission Status: Inpatient Order (span 2 midnights) Reason for Inpatient Admission: IV antibiotics required for pneumonia failed outpatient Levaquin Diagnosis/Problems Diagnosis/Problems (1) Pneumonia Status: Acute Qualifiers: Pneumonia type: due to unspecified organism Laterality: bilateral Lung location: lower lobe of lung Qualified Codes: J18.9 - Pneumonia, unspecified organism (2) Renal failure Status: Chronic Qualifiers: Renal failure chronicity: acute on chronic Acute renal failure type: unspecified Chronic kidney disease stage: stage 3 (moderate) Qualified Codes : N17.9 - Acute kidney failure, unspecified; N18.3 - Chronic kidney disease, stage 3 (moderate) (3) Dehydration Status: Acute Clinical Quality Measures DVT/VTE Risk/Contraindication: Risk Factor Score Per Nursin RFS Level Per Nursing on Admit: 2=Moderate HARRIET RUIZ DO Jul 18, 2017 11:35
[2017-07-18] MEDS: ENOXAPARIN 40 MG/0.4 ML (LOVENOX) SYR SC SCH (12:46)
[2017-07-18] MEDS: VANCOMYCIN 1 GM/NS 250 ML IVPB IV SCH ×2 (17:19)
[2017-07-18] MEDS: VENlafaxine XR 75 MG (EFFEXOR XR) CAP PO SCH (17:19)
[2017-07-18] MEDS: doxAzosin 4 MG (CARDURA) TAB PO SCH (21:34)
[2017-07-18] MEDS: ACYCLOVIR 400 MG TABLET (ZOVIRAX) PO SCH (21:34)
[2017-07-19] MEDS: RT-ALBUTEROL SULF 2.5 MG/3 ML PRE-MIX VIAL INH SCH ×6 (02:24→21:57)
[2017-07-19 04:00] VITALS: BP 155/83
[2017-07-19 04:55] LABS: BASOPHILS % (AUTO) 0 % (0-10); EOSINOPHILS # (AUTO) 0.2 10^3/uL (0.0-0.3); EOSINOPHILS % (AUTO) 2 % (0-10); HEMATOCRIT 29 % (40-54); HEMOGLOBIN 9.9 G/DL (13.3-17.7); LYMPHOCYTES # (AUTO) 1.2 X 10^3 (1.0-4.0); LYMPHOCYTES % (AUTO) 11 % (12-44); MEAN CORPUSCULAR HEMOGLOBIN 30 PG (25-34); MEAN CORPUSCULAR HGB CONC 35 G/DL (32-36); MEAN CORPUSCULAR VOLUME 88 FL (80-99); MEAN PLATELET VOLUME 9.3 FL (7.4-10.4); MONOCYTES # (AUTO) 0.9 X 10^3 (0.0-1.0); MONOCYTES % (AUTO) 8 % (0-12); NEUTROPHILS # (AUTO) 9.1 X 10^3 (1.8-7.8); NEUTROPHILS % (AUTO) 79 % (42-75); PLATELET COUNT 474 10^3/uL (130-400); RED BLOOD COUNT 3.27 10^6/uL (4.35-5.85); RED CELL DISTRIBUTION WIDTH 14.7 % (10.0-14.5); WHITE BLOOD COUNT 11.4 10^3/uL (4.3-11.0)
[2017-07-19 05:15] LABS: ALBUMIN 3.4 GM/DL (3.2-4.5); BILIRUBIN,TOTAL 1.2 MG/DL (0.1-1.0); CALCIUM 8.9 MG/DL (8.5-10.1); CREATININE SERUM 1.93 MG/DL (0.60-1.30); POTASSIUM 3.7 MMOL/L (3.6-5.0); TOTAL PROTEIN 7.1 GM/DL (6.4-8.2)
[2017-07-19] MEDS: hydrALAZINE (APRESOLINE) 25 MG TAB PO SCH ×3 (05:27→21:00)
[2017-07-19] MEDS: THYROID 1 GRAIN (60 - 65 MG) TABLET PO SCH (05:29)
[2017-07-19] MEDS: PIPERACILLIN SODIUM/TAZOBACTAM 4.5 GM in NS (IVPB) 100 ML IV SCH ×3 (05:30→21:46)
[2017-07-19 08:00] VITALS: BP 149/74
[2017-07-19] MEDS: ALLOPURINOL 100 MG (ZYLOPRIM) TAB PO SCH (09:05)
[2017-07-19] MEDS: FLUTICASONE NASAL SPRAY (FLONASE) 16 GM BTL NS SCH (09:05)
--- NOTE | 2017-07-19 10:42 | Progress Note-Hospitalist ---
Subjective HPI/CC On Admission Date Seen by Provider: Jul 19, 2017 Time Seen by Provider: 10:00 CC: Bilateral pneumonia failed Levaquin HPI: This is a 67-year-old white male clinic patient of Dr. 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 Ignacio's clinic with a fever of 102 and chest x-ray revealing bilateral pneumonia that had failed and progressed on Levaquin antibiotics. To note he reported to urgent care at [place] 4 times and to the ER in [place] twice prior to finally coming to Dr. Ignacio finding progressive pneumonia and findings consistent with leukocytosis and acute renal failure with dehydration and hypotension requiring admission to the hospital for definitive treatment. He does see Dr. Overton nephrology for severe hypertension and creatinine elevation with chronic renal insufficiency and is currently well-controlled on blood pressure medications. Patient does have a history of Lyme disease which Dr. Ignacio manages. His reports that he began having a chronic cough after right shoulder surgery by Dr. Lucas at [place] and having significant cough since that time but all the workups in the ER and urgent care had been normal not showing any infiltrate. Subjective/Events-last exam Patient doing much better but had an episode last night he was not feeling so well He states that if he doesn't start feeling better he is not going home He does use a pro-air inhaler at times so I will initiate IV steroids to calm bronchioles and help with the cough in addition to adding Tessalon Perles We'll obtain home O2 evaluation to be sure he doesn't need oxygen set up on exertion only Sodium level has resolved hyponatremia level Reviewed labs creatinine 1.9 Focused Exam Evaluation Lactate Level Laboratory Tests 07/17/17 16:35: Lactic Acid Level 0.81 Objective Exam Vital Signs Vital Signs Date Time Temp Pulse Resp B/P (MAP) Pulse Ox O2 Delivery O2 Flow Rate FiO2 07/17/17 15:34 95 07/17/17 15:36 91 07/17/17 15:36 Room Air 07/17/17 15:55 2.00 07/17/17 16:00 101.5 30 126/75 (92) Capillary Refill : General Appearance: No Apparent Distress, WD/WN, Chronically ill, Obese, Other (coughing dry cough) HEENT: PERRL/EOMI Respiratory: Chest Non Tender, Lungs Clear, Normal Breath Sounds, No Accessory Muscle Use, No Respiratory Distress, Decreased Breath Sounds Cardiovascular: Regular Rate, Rhythm, No Edema Neurologic/Psychiatric: Alert, Oriented x3, No Motor/Sensory Deficits, sports marketer II- XII Norm as Tested, Depressed Affect Skin: Normal Color, Warm/Dry Lymphatic: No Adenopathy Results/Procedures Lab Laboratory Tests 07/19/17 04:35 Patient resulted labs reviewed. Assessment/Plan Assessment and Plan Assess & Plan/Chief Complaint Assessment: Bilateral lower lobe pneumonia failed Levaquin Acute exacerbation of asthma Plan: IV steroids Pulmicort Check chest x-ray Check labs in a.m. Ambulate Home O2 tianal Kaylynn Waldrop Diagnosis/Problems Diagnosis/Problems (1) Pneumonia Status: Acute Qualifiers: Pneumonia type: due to unspecified organism Laterality: bilateral Lung location: lower lobe of lung Qualified Codes: J18.9 - Pneumonia, unspecified organism (2) Renal failure Status: Chronic Qualifiers: Renal failure chronicity: acute on chronic Acute renal failure type: unspecified Chronic kidney disease stage: stage 3 (moderate) Qualified Codes : N17.9 - Acute kidney failure, unspecified; N18.3 - Chronic kidney disease, stage 3 (moderate) (3) Dehydration Status: Resolved (4) Hypertension Status: Chronic Qualifiers: Hypertension type: essential hypertension Qualified Codes: I10 - Essential (primary) hypertension (5) Asthma Status: Chronic Qualifiers: Asthma severity: mild Asthma complication type: with acute exacerbation (6) Asthma attack Status: Acute Qualifiers: Asthma severity: moderate Asthma persistence: unspecified Qualified Codes : J45.901 - Unspecified asthma with (acute) exacerbation Clinical Quality Measures DVT/VTE Risk/Contraindication: Risk Factor Score Per Nursin RFS Level Per Nursing on Admit: 2=Moderate FRANCIS RUIZ DO Jul 19, 2017 10:42
[2017-07-19] MEDS: RT-BUDESONIDE NEBS 0.5 MG/2ML (PULMICORT) AMP INH SCH ×2 (11:12→21:57)
[2017-07-19 12:00] VITALS: BP 131/65
[2017-07-19] MEDS: ENOXAPARIN 40 MG/0.4 ML (LOVENOX) SYR SC SCH (12:23)
[2017-07-19] MEDS: BENZONATATE 100 MG (TESSALON) CAPSULE PO SCH ×2 (12:24→20:56)
[2017-07-19] MEDS: methylPREDNISolone 125 MG (Solu-MEDROL) VIAL IVP SCH ×4 (12:24→23:35)
--- NOTE | 2017-07-19 12:36 | Diagnostic Imaging Report ---
INDICATION: Pneumonia and cough. TIME OF EXAM: 12:26 PM CORRELATION is made with prior study from one day earlier. FINDINGS: The heart is enlarged. Small bilateral effusions persist. There has been some improved aeration to the left base. Mid and upper lung birch are clear. There are postop changes to the cervical spine. There is no pneumothorax. IMPRESSION: Continued bilateral pleural effusions with improved aeration to left base since exam one day earlier. Dictated by: Dictated on workstation # [id number]
--- NOTE | 2017-07-19 13:38 | Progress Note-Cardiology ---
Cardiology SOAP Progress Note Subjective: Feels somewhat better than before Postural dizziness has resolved Shortness of breath and malaise persistent but somewhat better Objective: I&O/Vital Signs Vital Sign - Last 12Hours 07/19/17 07/19/17 07/19/17 07/19/17 02:25 04:00 04:00 07:00 Temp 99.2 Pulse 92 Resp 20 B/P (MAP) 155/83 (107) Pulse Ox 96 95 94 O2 Delivery Room Air Room Air Room Air Room Air 07/19/17 07/19/17 07/19/17 07/19/17 08:00 08:00 09:00 10:22 Temp 99.6 Pulse 105 Resp 20 B/P (MAP) 149/74 (99) Pulse Ox 95 O2 Delivery Nasal Cannula Room Air Room Air Room Air O2 Flow Rate 2.00 07/19/17 12:00 Temp 99.8 Pulse 100 Resp 18 B/P (MAP) 131/65 (87) O2 Delivery Nasal Cannula O2 Flow Rate 2.00 Intake and Output 07/19/17 00:00 Intake Total 2317.5 ml Balance 2317.5 ml Weight (Pounds): 232 Weight (Ounces): 7.0 Weight (Calculated Kilograms): 105.238552 Constitutional: AAO x 3, well-developed, well-nourished Respiratory: No accessory muscle use, rhonchi (scattered), other (diminished air entry and some dullness to percussion at lung bases) Cardiovascular: regular rate-rhythm, S1 and S2, systolic murmur (soft MICHELLE at card base) Gastrointestional: No tender, soft, No guarding, No rebound, audible bowel sounds Extremities: No clubbing, No cyanosis, No significant edema Neurologic/Psychiatric: oriented x 3, grossly intact, power is 5/5 both on sides Skin: No rash on exposed areas, No ulcerations on exposed areas Results/Procedures: Labs Laboratory Tests 07/19/17 04:35: White Blood Count 11.4H, Red Blood Count 3.27L, Hemoglobin 9.9L, Hematocrit 29L , Mean Corpuscular Volume 88, Mean Corpuscular Hemoglobin 30, Mean Corpuscular Hemoglobin Concent 35, Red Cell Distribution Width 14.7H, Platelet Count 474H, Mean Platelet Volume 9.3, Neutrophils (%) (Auto) 79H, Lymphocytes (%) (Auto) 11L , Monocytes (%) (Auto) 8, Eosinophils (%) (Auto) 2, Basophils (%) (Auto) 0, Neutrophils # (Auto) 9.1H, Lymphocytes # (Auto) 1.2, Monocytes # (Auto) 0.9, Eosinophils # (Auto) 0.2, Basophils # (Auto) 0.0, Sodium Level 134L, Potassium Level 3.7, Chloride Level 100, Carbon Dioxide Level 22, Anion Gap 12, Blood Urea Nitrogen 20H, Creatinine 1.93H, Estimat Glomerular Filtration Rate 35, BUN/ Creatinine Ratio 10, Glucose Level 103, Calcium Level 8.9, Total Bilirubin 1.2H , Aspartate Amino Transf (AST/SGOT) 50H, Alanine Aminotransferase (ALT/SGPT) 49 , Alkaline Phosphatase 248H, Total Protein 7.1, Albumin 3.4 Microbiology 07/17/17 Blood Culture - Preliminary, Resulted No growth 07/18/17 MRSA Screen - Final, Complete MRSA not isolated Laboratory Tests 07/17/17 16:45 07/18/17 03:30 07/19/17 04:35 A/P: Assessment: Bilateral pneumonia, managed by Dr Mcadams Hyponatremia of unclear etiology, possibly SIADH, managed by Dr Mcadams Renal failure, probably CKD 4 Anemia of undetermined etiology, possibly related to CKD Hypertension, by history, but patient reporting postural dizziness on his current regimen Hypertensive cardiovascular disease (with cardiomegaly on CXR and LVH on echo) Echo of 07/31/16: Moderate left ventricular hypertrophy noted diffusely. Systolic function appeared to be normal. Estimated ejection fraction 60%. Mild mitral and tricuspid regurgitation. Estimated pulmonary artery pressure of 25 mmHg. No h/o CAD. Stress test of 07/31/16 did not show ischemia or infarction, LVEF 56% Plan: * He has multiple comorbidities as listed above * Reduction in anti-htn agents due to postural hypotension * Treatment of pneumonia and hyponatremia is per Dr Mcadams * I again had a detailed discussion with him and his , regarding CV issues, and answered questions EL[facility]REITAS [facility] Jul 19, 2017 13:38
[2017-07-19 14:26] VITALS: BP 141/70
[2017-07-19] MEDS ORDERED: TROUGH ORDER-PHARMACY XX NR (16:00)
[2017-07-19 16:47] VITALS: BP 142/66
[2017-07-19] MEDS: VANCOMYCIN 1 GM/NS 250 ML IVPB IV SCH ×2 (17:44)
[2017-07-19] MEDS: VENlafaxine XR 75 MG (EFFEXOR XR) CAP PO SCH (17:44)
[2017-07-19] MEDS: ACETAMINOPHEN 500 MG TAB (TYLENOL) PO PRN (19:33)
[2017-07-19 20:40] VITALS: BP 158/82
[2017-07-19] MEDS: doxAzosin 4 MG (CARDURA) TAB PO SCH (20:55)
[2017-07-19] MEDS: MONTELUKAST 10 MG (SINGULAIR) TAB PO SCH (20:56)
[2017-07-19] MEDS: ACYCLOVIR 400 MG TABLET (ZOVIRAX) PO SCH (20:56)
[2017-07-20] VITALS: BP 141/63
[2017-07-20] MEDS: RT-ALBUTEROL SULF 2.5 MG/3 ML PRE-MIX VIAL INH SCH ×3 (02:56→10:50)
[2017-07-20 04:00] VITALS: BP 155/72
[2017-07-20 06:32] LABS: BASOPHILS % (AUTO) 0 % (0-10); EOSINOPHILS % (AUTO) 0 % (0-10); HEMATOCRIT 29 % (40-54); LYMPHOCYTES # (AUTO) 0.7 X 10^3 (1.0-4.0); LYMPHOCYTES % (AUTO) 4 % (12-44); MEAN CORPUSCULAR HEMOGLOBIN 30 PG (25-34); MEAN CORPUSCULAR HGB CONC 34 G/DL (32-36); MEAN CORPUSCULAR VOLUME 87 FL (80-99); MEAN PLATELET VOLUME 9.3 FL (7.4-10.4); MONOCYTES # (AUTO) 0.7 X 10^3 (0.0-1.0); MONOCYTES % (AUTO) 4 % (0-12); NEUTROPHILS # (AUTO) 14.7 X 10^3 (1.8-7.8); NEUTROPHILS % (AUTO) 92 % (42-75); PLATELET COUNT 484 10^3/uL (130-400); RED BLOOD COUNT 3.33 10^6/uL (4.35-5.85); RED CELL DISTRIBUTION WIDTH 14.7 % (10.0-14.5); WHITE BLOOD COUNT 16.1 10^3/uL (4.3-11.0)
[2017-07-20] MEDS: PIPERACILLIN SODIUM/TAZOBACTAM 4.5 GM in NS (IVPB) 100 ML IV SCH ×3 (06:41→21:53)
[2017-07-20] MEDS: hydrALAZINE (APRESOLINE) 25 MG TAB PO SCH ×3 (06:42→21:53)
[2017-07-20] MEDS: THYROID 1 GRAIN (60 - 65 MG) TABLET PO SCH (06:42)
[2017-07-20] MEDS: ACETAMINOPHEN 500 MG TAB (TYLENOL) PO PRN (06:42)
[2017-07-20 06:45] LABS: ANISOCYTOSIS SLIGHT; BAND NEUTROPHILS 2 %; BASOPHILS % (MANUAL) 0 %; EOSINOPHILS % (MANUAL) 0 %; LYMPHOCYTES % (MANUAL) 4 %; MONOCYTES % (MANUAL) 1 %; NEUTROPHILS % (MANUAL) 93 %
[2017-07-20 06:46] LABS: HYPERSEGMENTED NEUT SLIGHT
[2017-07-20 07:11] LABS: ALBUMIN 3.4 GM/DL (3.2-4.5); BILIRUBIN,TOTAL 0.7 MG/DL (0.1-1.0); CALCIUM 9.2 MG/DL (8.5-10.1); CREATININE SERUM 1.75 MG/DL (0.60-1.30); POTASSIUM 3.7 MMOL/L (3.6-5.0); TOTAL PROTEIN 6.9 GM/DL (6.4-8.2)
[2017-07-20] MEDS: RT-BUDESONIDE NEBS 0.5 MG/2ML (PULMICORT) AMP INH SCH ×2 (08:05→22:07)
[2017-07-20 08:27] VITALS: BP 181/83
[2017-07-20] MEDS: predniSONE 20 MG TAB PO SCH ×2 (08:43→20:36)
[2017-07-20] MEDS: BENZONATATE 100 MG (TESSALON) CAPSULE PO SCH ×3 (08:43→20:36)
[2017-07-20] MEDS: ALLOPURINOL 100 MG (ZYLOPRIM) TAB PO SCH (08:44)
[2017-07-20] MEDS: FLUTICASONE NASAL SPRAY (FLONASE) 16 GM BTL NS SCH (08:46)
--- NOTE | 2017-07-20 11:22 | Progress Note-Hospitalist ---
Subjective HPI/CC On Admission Date Seen by Provider: Jul 20, 2017 Time Seen by Provider: 09:30 CC: Bilateral pneumonia failed Levaquin HPI: This is a 67-year-old white male clinic patient of Dr. 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 Ignacio's clinic with a fever of 102 and chest x-ray revealing bilateral pneumonia that had failed and progressed on Levaquin antibiotics. To note he reported to urgent care at [place] 4 times and to the ER in [place] twice prior to finally coming to Dr. Ignacio finding progressive pneumonia and findings consistent with leukocytosis and acute renal failure with dehydration and hypotension requiring admission to the hospital for definitive treatment. He does see Dr. Overton nephrology for severe hypertension and creatinine elevation with chronic renal insufficiency and is currently well-controlled on blood pressure medications. Patient does have a history of Lyme disease which Dr. Ignacio manages. His reports that he began having a chronic cough after right shoulder surgery by Dr. Lucas at [place] and having significant cough since that time but all the workups in the ER and urgent care had been normal not showing any infiltrate. Subjective/Events-last exam Patient complains of severe shaking and increased blood pressure because of steroids and albuterol treatments. In further evaluation he does give a strong history of asbestos exposure in the past. He has never had any previous episodes of hypoxia or lung disease that he knows of. He does relate this increased shortness of breath and cough secondary to possible aspiration after surgery for his right shoulder at the end of May. He said he had not had problems with his lungs or coughing before that. He does have a history of an esophageal stricture secondary to chronic reflux and has had to have dilation in the past last time 2 years ago. Review of Systems Pulmonary: Dyspnea, Cough (Improved) Focused Exam Evaluation Lactate Level Laboratory Tests 07/17/17 16:35: Lactic Acid Level 0.81 Time of Focused Exam: 09:30 Respiratory: Chest Non Tender, Lungs Clear, Normal Breath Sounds, No Accessory Muscle Use, No Respiratory Distress Cardiovascular: Regular Rate, Rhythm, No Gallop, No Murmur, Normal Peripheral Pulses Capillary Refill: Less Than 3 Seconds Skin: pallor, rash (Bilateral lower legs.) Objective Exam Vital Signs Vital Signs Date Time Temp Pulse Resp B/P (MAP) Pulse Ox O2 Delivery O2 Flow Rate FiO2 07/17/17 15:34 95 07/17/17 15:36 91 07/17/17 15:36 Room Air 07/17/17 15:55 2.00 07/17/17 16:00 101.5 30 126/75 (92) Capillary Refill : Less Than 3 Seconds General Appearance: Anxious, Other (Flushed face) HEENT: Pharynx Normal, Other (Slight exophthalmos) Neck: Full Range of Motion, Normal Inspection, Non Tender, Supple Respiratory: Lungs Clear, Normal Breath Sounds, No Accessory Muscle Use, No Respiratory Distress Cardiovascular: Regular Rate, Rhythm, No Edema, No Gallop, No JVD, No Murmur, Normal Peripheral Pulses Gastrointestinal: Normal Bowel Sounds, No Organomegaly, Non Tender, Soft, Distended Rectal: Deferred Back: Normal Inspection, No CVA Tenderness Extremity: Normal Inspection, Normal Range of Motion, Non Tender, No Calf Tenderness, No Pedal Edema Neurologic/Psychiatric: Alert, Oriented x3, No Motor/Sensory Deficits, Other ( Appears anxious with a great deal of course motor tremor) Skin: Warm/Dry Results/Procedures Lab Laboratory Tests 07/20/17 06:15 Patient resulted labs reviewed. Imaging: Reviewed Imaging Films (No evidence of an infiltrate but does have some cardiomegaly) Assessment/Plan Assessment and Plan Assess & Plan/Chief Complaint 1. Cough and a history of infiltrates although this appears to have resolved possibly secondary to inadvertent aspiration during surgical procedure however the patient does have an elevated alkaline phosphatase and history of asbestos exposure so we'll obtain a CT chest. 2. Increased tremors secondary to high-dose steroids and albuterol we'll change to Xopenex and prednisone 3. Leukocytosis secondary to steroids 4. Hypertension out of control currently being managed by Dr. Moore Diagnosis/Problems Diagnosis/Problems (1) Pneumonia Status: Acute Qualifiers: Pneumonia type: due to unspecified organism Laterality: bilateral Lung location: lower lobe of lung Qualified Codes: J18.9 - Pneumonia, unspecified organism (2) GERD with stricture Status: Chronic Assessment & Plan: History of dilatation in the past (3) Elevated serum alkaline phosphatase level Status: Acute (4) Leukocytosis Status: Acute Qualifiers: Leukocytosis type: unspecified Qualified Codes: D72.829 - Elevated white blood cell count, unspecified (5) Renal failure Status: Chronic Qualifiers: Renal failure chronicity: acute on chronic Acute renal failure type: unspecified Chronic kidney disease stage: stage 3 (moderate) Qualified Codes : N17.9 - Acute kidney failure, unspecified; N18.3 - Chronic kidney disease, stage 3 (moderate) (6) Hypertension Status: Chronic Qualifiers: Hypertension type: essential hypertension Qualified Codes: I10 - Essential (primary) hypertension (7) Asthma Status: Chronic Qualifiers: Asthma severity: mild Asthma complication type: with acute exacerbation (8) H/O asbestos exposure Status: Chronic Clinical Quality Measures DVT/VTE Risk/Contraindication: Risk Factor Score Per Nursin RFS Level Per Nursing on Admit: 2=Moderate LUDWIN SALCEDO MD Jul 20, 2017 11:22
[2017-07-20 12:30] VITALS: BP 165/78
--- NOTE | 2017-07-20 12:37 | Diagnostic Imaging Report ---
CLINICAL INDICATION: Patient with hypoxia with heavy asbestos exposure and elevated alkaline phosphatase. EXAM: CT scan of the chest performed without IV contrast. Coronal and sagittal reformatted images are created. COMPARISON: Chest x-ray dated 07/19/2017. FINDINGS: There are [id number]-sized bilateral pleural effusions (left side more than the right). There is mild bibasilar atelectasis and mild consolidation in the posterior left lung base. There is mild right lung base atelectasis. There is moderate pericardial effusion seen. Multiple nonspecific mediastinal lymph nodes are seen which are all subcentimeter in greatest axis. Likely partially calcified lymph nodes seen in the low pretracheal region. Is no significant axillary lymphadenopathy. Limited visualization of upper abdominal structures are unremarkable. The extrathoracic soft tissue structures are unremarkable. There are degenerative spurs involving the thoracic spine. Incompletely imaged lower cervical spine anterior disc fusion hardware. IMPRESSION: 1: There are [id number] sized bilateral pleural effusions with bibasilar atelectasis (left side more than the right). Otherwise, lungs are clear. 2: There is a moderate sized pericardial effusion. 3: There are prominent multiple mediastinal lymph nodes. Dictated by: Dictated on workstation # [id number]
[2017-07-20] MEDS: ENOXAPARIN 40 MG/0.4 ML (LOVENOX) SYR SC SCH (13:28)
--- NOTE | 2017-07-20 14:11 | Progress Note-Cardiology ---
Cardiology SOAP Progress Note Subjective: Slowly improving. Able to ambulate better with less shortness of breath. Does not feel back to usual baseline. Does not report cp or palp or syncope Objective: I&O/Vital Signs Vital Sign - Last 12Hours 07/20/17 07/20/17 07/20/17 07/20/17 02:57 04:00 04:15 08:05 Temp 97.4 Pulse 91 Resp 18 B/P (MAP) 155/72 (99) Pulse Ox 94 95 96 O2 Delivery Room Air Room Air Room Air Room Air 07/20/17 07/20/17 07/20/17 08:27 09:00 10:50 Temp 98.1 Pulse 105 Resp 22 B/P (MAP) 181/83 (115) Pulse Ox 96 94 O2 Delivery Room Air Room Air Room Air Intake and Output 07/20/17 00:00 Intake Total 730 ml Balance 730 ml Weight (Pounds): 232 Weight (Ounces): 7.0 Weight (Calculated Kilograms): 105.281912 Constitutional: AAO x 3, well-developed, well-nourished Respiratory: No accessory muscle use, rhonchi (scattered), other (diminished air entry and some dullness to percussion at lung bases) Cardiovascular: regular rate-rhythm, S1 and S2, systolic murmur (soft MICHELLE at card base) Gastrointestional: No tender, soft, No guarding, No rebound, audible bowel sounds Extremities: No clubbing, No cyanosis, No significant edema Neurologic/Psychiatric: oriented x 3, grossly intact, power is 5/5 both on sides Skin: pallor, rash Results/Procedures: Labs Laboratory Tests 07/19/17 16:55: Vancomycin Level Trough 9.6L 07/20/17 06:15: White Blood Count 16.1H, Red Blood Count 3.33L, Hemoglobin 10.0L, Hematocrit 29L , Mean Corpuscular Volume 87, Mean Corpuscular Hemoglobin 30, Mean Corpuscular Hemoglobin Concent 34, Red Cell Distribution Width 14.7H, Platelet Count 484H, Mean Platelet Volume 9.3, Neutrophils (%) (Auto) 92H, Lymphocytes (%) (Auto) 4L , Monocytes (%) (Auto) 4, Eosinophils (%) (Auto) 0, Basophils (%) (Auto) 0, Neutrophils # (Auto) 14.7H, Lymphocytes # (Auto) 0.7L, Monocytes # (Auto) 0.7, Eosinophils # (Auto) 0.0, Basophils # (Auto) 0.0, Neutrophils % (Manual) 93, Lymphocytes % (Manual) 4, Monocytes % (Manual) 1, Eosinophils % (Manual) 0, Basophils % (Manual) 0, Band Neutrophils 2, Hypersegmented Neutrophils SLIGHT, Anisocytosis SLIGHT, Sodium Level 136, Potassium Level 3.7, Chloride Level 104, Carbon Dioxide Level 23, Anion Gap 9, Blood Urea Nitrogen 23H, Creatinine 1.75H , Estimat Glomerular Filtration Rate 39, BUN/Creatinine Ratio 13, Glucose Level 184H, Calcium Level 9.2, Total Bilirubin 0.7, Aspartate Amino Transf (AST/SGOT) 42H, Alanine Aminotransferase (ALT/SGPT) 52, Alkaline Phosphatase 233H, Total Protein 6.9, Albumin 3.4 Microbiology 07/17/17 Blood Culture - Preliminary, Resulted No growth 07/18/17 MRSA Screen - Final, Complete MRSA not isolated Laboratory Tests 07/19/17 04:35 07/20/17 06:15 A/P: Assessment: Bilateral pneumonia, managed by Dr Mcadams Hyponatremia, resolved with volume resuscitation (iv NS) Renal failure, probably CKD 4 Anemia of undetermined etiology, possibly related to CKD Hypertension, by history Hypertensive cardiovascular disease (with cardiomegaly on CXR and LVH on echo) Echo of 07/31/16: Moderate left ventricular hypertrophy noted diffusely. Systolic function appeared to be normal. Estimated ejection fraction 60%. Mild mitral and tricuspid regurgitation. Estimated pulmonary artery pressure of 25 mmHg. No h/o CAD. Stress test of 07/31/16 did not show ischemia or infarction, LVEF 56% Plan: * He has multiple comorbidities as listed above * I again discussed his CV issues with him and his and answered questions * Add beta-adrianne because bp and pulse have crept up * Repeat ECG in ELIZA Martinez MD FACP [facility] Jul 20, 2017 14:11
[2017-07-20] MEDS ORDERED: meTOprolol SUCCINATE 100 MG (TOPROL XL) TAB PO ONE (14:15)
[2017-07-20] MEDS ORDERED: ASPIRIN 81 MG CHEW (CHILDREN'S ASA) PO ONE (14:15)
[2017-07-20] MEDS: RT-LEVALBUTEROL (XOPENEX) 1.25 MG/3 ML NEB NON-FORMULARY INH SCH ×2 (14:21→22:07)
[2017-07-20 16:10] VITALS: BP 130/74
[2017-07-20] MEDS: VENlafaxine XR 75 MG (EFFEXOR XR) CAP PO SCH (17:32)
[2017-07-20 20:00] VITALS: BP 177/79
[2017-07-20] MEDS: MONTELUKAST 10 MG (SINGULAIR) TAB PO SCH (20:36)
[2017-07-20] MEDS: doxAzosin 4 MG (CARDURA) TAB PO SCH (20:36)
[2017-07-20] MEDS: ACYCLOVIR 400 MG TABLET (ZOVIRAX) PO SCH (20:36)
[2017-07-21] VITALS (7 sets, daily range): BP systolic 130–180; BP diastolic 58–84
[2017-07-21] MEDS: THYROID 1 GRAIN (60 - 65 MG) TABLET PO SCH (06:26)
[2017-07-21] MEDS: hydrALAZINE (APRESOLINE) 25 MG TAB PO SCH ×3 (06:26→22:12)
[2017-07-21] MEDS: PIPERACILLIN SODIUM/TAZOBACTAM 4.5 GM in NS (IVPB) 100 ML IV SCH ×3 (06:28→22:07)
[2017-07-21] MEDS: RT-LEVALBUTEROL (XOPENEX) 1.25 MG/3 ML NEB NON-FORMULARY INH SCH ×3 (07:10→22:46)
[2017-07-21] MEDS: RT-BUDESONIDE NEBS 0.5 MG/2ML (PULMICORT) AMP INH SCH ×2 (07:11→22:45)
[2017-07-21] MEDS: ASPIRIN 81 MG CHEW (CHILDREN'S ASA) PO SCH (09:53)
[2017-07-21] MEDS: BENZONATATE 100 MG (TESSALON) CAPSULE PO SCH ×3 (09:53→22:11)
[2017-07-21] MEDS: meTOprolol SUCCINATE 100 MG (TOPROL XL) TAB PO SCH (09:54)
[2017-07-21] MEDS: FLUTICASONE NASAL SPRAY (FLONASE) 16 GM BTL NS SCH (09:54)
[2017-07-21] MEDS: ALLOPURINOL 100 MG (ZYLOPRIM) TAB PO SCH (09:54)
[2017-07-21] MEDS: predniSONE 20 MG TAB PO SCH ×2 (09:54→22:12)
[2017-07-21 11:58] LABS: BASOPHILS % (AUTO) 0 % (0-10); EOSINOPHILS % (AUTO) 0 % (0-10); HEMATOCRIT 30 % (40-54); HEMOGLOBIN 10.1 G/DL (13.3-17.7); LYMPHOCYTES # (AUTO) 1.8 X 10^3 (1.0-4.0); LYMPHOCYTES % (AUTO) 9 % (12-44); MEAN CORPUSCULAR HEMOGLOBIN 31 PG (25-34); MEAN CORPUSCULAR HGB CONC 34 G/DL (32-36); MEAN CORPUSCULAR VOLUME 89 FL (80-99); MEAN PLATELET VOLUME 8.8 FL (7.4-10.4); MONOCYTES % (AUTO) 5 % (0-12); NEUTROPHILS # (AUTO) 16.1 X 10^3 (1.8-7.8); NEUTROPHILS % (AUTO) 85 % (42-75); PLATELET COUNT 565 10^3/uL (130-400); RED BLOOD COUNT 3.31 10^6/uL (4.35-5.85); RED CELL DISTRIBUTION WIDTH 15.1 % (10.0-14.5); WHITE BLOOD COUNT 18.9 10^3/uL (4.3-11.0)
[2017-07-21 12:16] LABS: ERYTHROCYTE SEDIMENTATION RATE 106 MM/HR (0-30)
[2017-07-21 12:24] LABS: ALBUMIN 3.5 GM/DL (3.2-4.5); BILIRUBIN,TOTAL 0.6 MG/DL (0.1-1.0); CALCIUM 9.1 MG/DL (8.5-10.1); CREATININE SERUM 1.85 MG/DL (0.60-1.30); POTASSIUM 3.8 MMOL/L (3.6-5.0); TOTAL PROTEIN 7.2 GM/DL (6.4-8.2)
[2017-07-21 12:38] LABS: EOSINOPHILS % (MANUAL) 1 %; LYMPHOCYTES % (MANUAL) 11 %; MONOCYTES % (MANUAL) 3 %; NEUTROPHILS % (MANUAL) 85 %; RBC MORPH NORMAL
--- NOTE | 2017-07-21 13:06 | Progress Note-Hospitalist ---
Subjective HPI/CC On Admission Date Seen by Provider: Jul 21, 2017 Time Seen by Provider: 11:30 CC: Bilateral pneumonia failed Levaquin HPI: This is a 67-year-old white male clinic patient of Dr. 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 Ignacio's clinic with a fever of 102 and chest x-ray revealing bilateral pneumonia that had failed and progressed on Levaquin antibiotics. To note he reported to urgent care at [place] 4 times and to the ER in [place] twice prior to finally coming to Dr. Ignacio finding progressive pneumonia and findings consistent with leukocytosis and acute renal failure with dehydration and hypotension requiring admission to the hospital for definitive treatment. He does see Dr. Overton nephrology for severe hypertension and creatinine elevation with chronic renal insufficiency and is currently well-controlled on blood pressure medications. Patient does have a history of Lyme disease which Dr. Ignacio manages. His reports that he began having a chronic cough after right shoulder surgery by Dr. Lucas at [place] and having significant cough since that time but all the workups in the ER and urgent care had been normal not showing any infiltrate. Subjective/Events-last exam Patient continues to feel somewhat better. Continues to have some shaking secondary to the steroids and albuterol however that's better. We did change to Xopenex and prednisone yesterday. CT shows pericardial effusion and pleural effusions. Dr. Moore is aware and planning to repeat an echocardiogram. I discussed with the patient at length different etiologies for a pericardial effusion including autoimmune disease, malignancy, myxedema, viral or infectious etiology. Patient does have an extensive exposure to secondhand smoke and asbestos. Review of Systems Pulmonary: Cough Neurological: Weakness Focused Exam Time of Focused Exam: 929 Objective Exam Vital Signs Vital Signs Date Time Temp Pulse Resp B/P (MAP) Pulse Ox O2 Delivery O2 Flow Rate FiO2 07/17/17 15:34 95 07/17/17 15:36 91 07/17/17 15:36 Room Air 07/17/17 15:55 2.00 07/17/17 16:00 101.5 30 126/75 (92) Capillary Refill : Less Than 3 SecondsLess Than 3 Seconds General Appearance: No Apparent Distress, WD/WN HEENT: PERRL/EOMI, TMs Normal, Normal ENT Inspection, Pharynx Normal Neck: Full Range of Motion, Normal Inspection, Non Tender, Supple Respiratory: Chest Non Tender, Normal Breath Sounds, No Accessory Muscle Use, No Respiratory Distress, Crackles, Rhonci Cardiovascular: Regular Rate, Rhythm, No Gallop, No Murmur, Normal Peripheral Pulses Gastrointestinal: Normal Bowel Sounds, No Pulsatile Mass, Non Tender, Soft Rectal: Deferred Back: No CVA Tenderness Extremity: Normal Capillary Refill, Normal Inspection, Normal Range of Motion, Non Tender, No Calf Tenderness Neurologic/Psychiatric: Alert, Oriented x3, No Motor/Sensory Deficits, Normal Mood/Affect, spin tank tender II-XII Norm as Tested Skin: Normal Color, Warm/Dry Results/Procedures Lab Laboratory Tests 07/21/17 11:45 Patient resulted labs reviewed. Imaging: Reviewed Imaging Films Assessment/Plan Assessment and Plan Assess & Plan/Chief Complaint 1. Cough and a history of infiltrates although this appears to have resolved possibly secondary to inadvertent aspiration during surgical procedure however the patient does have an elevated alkaline phosphatase and history of asbestos exposure -CT chest shows a pericardial effusion and pleural effusions and multiple mediastinal lymph nodes-less than a centimeter 2. Increased tremors secondary to high-dose steroids and albuterol we'll change to Xopenex and prednisone 3. Leukocytosis secondary to steroids 4. Hypertension out of control currently being managed by Dr. Moore 5. Pericardial effusion pleural effusions, may require bronchoscopy thoracentesis pericardiocentesis or watchful waiting-TB testing, thyroid CPK and sedimentation rate are all pending and will need to be followed up on 6. Acute on Chronic renal failure Diagnosis/Problems Diagnosis/Problems (1) Pneumonia Status: Acute Qualifiers: Pneumonia type: due to unspecified organism Laterality: bilateral Lung location: lower lobe of lung Qualified Codes: J18.9 - Pneumonia, unspecified organism (2) GERD with stricture Status: Chronic Assessment & Plan: History of dilatation in the past (3) Elevated serum alkaline phosphatase level Status: Acute (4) Leukocytosis Status: Acute Qualifiers: Leukocytosis type: unspecified Qualified Codes: D72.829 - Elevated white blood cell count, unspecified (5) Renal failure Status: Chronic Qualifiers: Renal failure chronicity: acute on chronic Acute renal failure type: unspecified Chronic kidney disease stage: stage 3 (moderate) Qualified Codes : N17.9 - Acute kidney failure, unspecified; N18.3 - Chronic kidney disease, stage 3 (moderate) (6) Hypertension Status: Chronic Qualifiers: Hypertension type: essential hypertension Qualified Codes: I10 - Essential (primary) hypertension (7) Asthma Status: Chronic Qualifiers: Asthma severity: mild Asthma complication type: with acute exacerbation (8) H/O asbestos exposure Status: Chronic (9) Pericardial effusion Status: Acute Clinical Quality Measures DVT/VTE Risk/Contraindication: Risk Factor Score Per Nursin RFS Level Per Nursing on Admit: 2=Moderate LUDWIN SALCEDO MD Jul 21, 2017 13:06
[2017-07-21] MEDS: ENOXAPARIN 40 MG/0.4 ML (LOVENOX) SYR SC SCH (14:08)
[2017-07-21] MEDS: VENlafaxine XR 75 MG (EFFEXOR XR) CAP PO SCH (16:34)
--- NOTE | 2017-07-21 16:43 | Progress Note-Cardiology ---
Cardiology SOAP Progress Note Subjective: Less short of breath No cp or palp or syncope Cough has improved Objective: I&O/Vital Signs Vital Sign - Last 12Hours 07/21/17 07/21/17 07/21/17 07/21/17 07:11 07:13 08:00 08:36 Temp 98.9 Pulse 61 Resp 20 B/P (MAP) 148/67 (94) Pulse Ox 95 95 94 O2 Delivery Room Air Room Air Room Air Room Air 07/21/17 07/21/17 12:00 14:25 Temp 98.3 Pulse 80 Resp 20 B/P (MAP) 141/84 (103) Pulse Ox 97 94 O2 Delivery Room Air Room Air Intake and Output 07/21/17 00:00 Intake Total 500 ml Output Total 350 ml Balance 150 ml Weight (Pounds): 235 Weight (Ounces): 6.0 Weight (Calculated Kilograms): 106.141815 Constitutional: AAO x 3, well-developed, well-nourished Respiratory: No accessory muscle use, rhonchi (scattered), other (diminished air entry and some dullness to percussion at lung bases) Cardiovascular: regular rate-rhythm, S1 and S2, systolic murmur (soft MICHELLE at card base) Gastrointestional: No tender, soft, No guarding, No rebound, audible bowel sounds Extremities: No clubbing, No cyanosis, No significant edema Neurologic/Psychiatric: oriented x 3, grossly intact, power is 5/5 both on sides Skin: pallor, rash Results/Procedures: Labs Laboratory Tests 07/21/17 11:45: White Blood Count 18.9H, Red Blood Count 3.31L, Hemoglobin 10.1L, Hematocrit 30L , Mean Corpuscular Volume 89, Mean Corpuscular Hemoglobin 31, Mean Corpuscular Hemoglobin Concent 34, Red Cell Distribution Width 15.1H, Platelet Count 565H, Mean Platelet Volume 8.8, Neutrophils (%) (Auto) 85H, Lymphocytes (%) (Auto) 9L , Monocytes (%) (Auto) 5, Eosinophils (%) (Auto) 0, Basophils (%) (Auto) 0, Neutrophils # (Auto) 16.1H, Lymphocytes # (Auto) 1.8, Monocytes # (Auto) 1.0, Eosinophils # (Auto) 0.0, Basophils # (Auto) 0.0, Neutrophils % (Manual) 85, Lymphocytes % (Manual) 11, Monocytes % (Manual) 3, Eosinophils % (Manual) 1, Blood Morphology Comment NORMAL, Erythrocyte Sedimentation Rate 106H, Sodium Level 138, Potassium Level 3.8, Chloride Level 103, Carbon Dioxide Level 25, Anion Gap 10, Blood Urea Nitrogen 35H, Creatinine 1.85H, Estimat Glomerular Filtration Rate 37, BUN/Creatinine Ratio 19, Glucose Level 118H, Calcium Level 9.1, Total Bilirubin 0.6, Aspartate Amino Transf (AST/SGOT) 52H, Alanine Aminotransferase (ALT/SGPT) 60H, Alkaline Phosphatase 190H, Total Creatine Kinase 205H, C-Reactive Protein High Sensitivity 10.87H, Total Protein 7.2, Albumin 3.5, Thyroid Stimulating Hormone (TSH) 0.13L Microbiology 07/17/17 Blood Culture - Preliminary, Resulted No growth 07/18/17 MRSA Screen - Final, Complete MRSA not isolated Laboratory Tests 07/20/17 06:15 07/21/17 11:45 A/P: Assessment: Bilateral pneumonia, managed by the [facility] CT chest on 07/20/17: mediastinal lymphadenopathy, mild to mod pleural eff and pericard eff, and bibasilar atelectasis Echo on 07/20/17 ([address] CT chest of 07/20/17): No significant pericard eff; LVEF 65-70%; mild MR; mod dilatation of left atrium; pasp 30-35 mmHg Hypertension, improved after addition of bb to the regimen on 07/20/17 Hyponatremia, resolved with volume resuscitation (iv NS) Renal failure, probably CKD 4 Anemia of undetermined etiology, possibly related to CKD Hypertensive cardiovascular disease (with cardiomegaly on CXR and LVH on echo) No h/o CAD. Stress test of 07/31/16 did not show ischemia or infarction, LVEF 56% Plan: * Relatively complex management * Although CT chest is reported to have shown mod pericard eff, there is no significant pericard eff on subsequent echo; also, no clinical evidence of any tamponade * BP improved after adding bb * I again discussed his CV issues with him and his and answered questions ELIZA FREITAS MD FACP [facility] Jul 21, 2017 16:43
[2017-07-21] MEDS: ACYCLOVIR 400 MG TABLET (ZOVIRAX) PO SCH (22:11)
[2017-07-21] MEDS: MONTELUKAST 10 MG (SINGULAIR) TAB PO SCH (22:12)
[2017-07-21] MEDS: doxAzosin 4 MG (CARDURA) TAB PO SCH (22:12)
[2017-07-22 00:02] VITALS: BP 130/57
[2017-07-22 04:03] VITALS: BP 150/77
[2017-07-22] MEDS: RT-LEVALBUTEROL (XOPENEX) 1.25 MG/3 ML NEB NON-FORMULARY INH SCH ×3 (06:25→21:10)
[2017-07-22] MEDS: RT-BUDESONIDE NEBS 0.5 MG/2ML (PULMICORT) AMP INH SCH ×2 (06:27→21:10)
[2017-07-22 06:30] VITALS: BP 174/72
[2017-07-22] MEDS: PIPERACILLIN SODIUM/TAZOBACTAM 4.5 GM in NS (IVPB) 100 ML IV SCH ×3 (06:58→21:33)
[2017-07-22] MEDS: hydrALAZINE (APRESOLINE) 25 MG TAB PO SCH ×3 (06:59→21:39)
[2017-07-22] MEDS: THYROID 1 GRAIN (60 - 65 MG) TABLET PO SCH (06:59)
[2017-07-22] MEDS: BENZONATATE 100 MG (TESSALON) CAPSULE PO SCH ×3 (08:04→21:39)
[2017-07-22] MEDS: predniSONE 20 MG TAB PO SCH ×2 (08:04→21:38)
[2017-07-22] MEDS: ASPIRIN 81 MG CHEW (CHILDREN'S ASA) PO SCH (08:04)
[2017-07-22] MEDS: FLUTICASONE NASAL SPRAY (FLONASE) 16 GM BTL NS SCH (08:05)
[2017-07-22] MEDS: ALLOPURINOL 100 MG (ZYLOPRIM) TAB PO SCH (08:05)
[2017-07-22] MEDS: meTOprolol SUCCINATE 100 MG (TOPROL XL) TAB PO SCH (08:05)
[2017-07-22 08:30] VITALS: BP 153/83
--- NOTE | 2017-07-22 09:58 | Progress Note-Cardiology ---
Cardiology SOAP Progress Note Subjective: Currently in isolation for TB precautions. Feels his cough is better, but still occ productive. No c/o CP or palpitations. Spouse reports he has been having night sweats. Objective: I&O/Vital Signs Vital Sign - Last 12Hours 07/22/17 07/22/17 07/22/17 07/22/17 08:26 08:30 12:30 15:26 Temp 98.2 97.6 Pulse 85 82 Resp 20 16 B/P (MAP) 153/83 (106) 154/81 (105) Pulse Ox 95 94 95 O2 Delivery Room Air Room Air Room Air Room Air 07/22/17 16:55 Temp 98.2 Pulse 83 Resp 16 B/P (MAP) 135/80 (98) Pulse Ox 96 O2 Delivery Room Air Intake and Output 07/22/17 00:00 Intake Total 1120 ml Output Total 600 ml Balance 520 ml Weight (Pounds): 254 Weight (Ounces): 8.0 Weight (Calculated Kilograms): 115.969548 Constitutional: AAO x 3, well-developed, well-nourished Respiratory: No accessory muscle use, rhonchi (scattered), other (diminished air entry and some dullness to percussion at lung bases) Cardiovascular: regular rate-rhythm, S1 and S2, systolic murmur (soft MICHELLE at card base) Gastrointestional: No tender, soft, No guarding, No rebound, audible bowel sounds Extremities: No clubbing, No cyanosis, No significant edema Neurologic/Psychiatric: oriented x 3, grossly intact, power is 5/5 both on sides Skin: pallor, rash Results/Procedures: Labs Microbiology 07/17/17 Blood Culture - Preliminary, Resulted No growth 07/18/17 MRSA Screen - Final, Complete MRSA not isolated A/P: Assessment: Bilateral pneumonia, managed by the [facility] CT chest on 07/20/17: mediastinal lymphadenopathy, mild to mod pleural eff and pericard eff, and bibasilar atelectasis Echo on 07/20/17 (following CT chest of 07/20/17): No significant pericard eff; LVEF 65-70%; mild MR; mod dilatation of left atrium; pasp 30-35 mmHg Hypertension, improved after addition of bb to the regimen on 07/20/17 Hyponatremia, resolved with volume resuscitation (iv NS) Renal failure, probably CKD 4 Anemia of undetermined etiology, possibly related to CKD Hypertensive cardiovascular disease (with cardiomegaly on CXR and LVH on echo) No h/o CAD. Stress test of 07/31/16 did not show ischemia or infarction, LVEF 56% Liver enzyme elevation of undetermined etiology Low TSH on 07-21-17 indicative of hyperthyroidism Plan: * Relatively complex management * Although CT chest is reported to have shown mod pericard eff, there is no significant pericard eff on subsequent echo; also, no clinical evidence of any tamponade * BP improved after adding bb * Dr. Jimenez has discussed his CV issues with him and his and answered questions * He is currently is isolation for TB precautions until testing results come back * Elevated liver enzymes of undetermined etiology * Low TSH indicative of hyperthyroidism on lab of 07-21-17 Physician Assessment Physician Assessment Feels better compared to time of admission. No cp or palp or syncope. Shortness of breath better Cor: reg Lungs: good bilat air entry, somewhat diminished at the bases Ext: no c/c/e A&R * As documented in our note above that I updated (italics) at the time of this writing and as noted below * I spoke with him and his and answered CV-related questions * I discussed his case with Dr Paul of the Hosp ce this am [employer] Jul 22, 2017 09:58 ELIZA JIMENEZ MD FACP [facility] Jul 22, 2017 19:16
[2017-07-22 12:30] VITALS: BP 154/81
--- NOTE | 2017-07-22 14:02 | Progress Note-Hospitalist ---
Subjective HPI/CC On Admission Date Seen by Provider: Jul 22, 2017 Time Seen by Provider: 13:15 CC: Bilateral pneumonia failed Levaquin HPI: This is a 67-year-old white male clinic patient of Dr. 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 Ignacio's clinic with a fever of 102 and chest x-ray revealing bilateral pneumonia that had failed and progressed on Levaquin antibiotics. To note he reported to urgent care at [place] 4 times and to the ER in [place] twice prior to finally coming to Dr. Ignacio finding progressive pneumonia and findings consistent with leukocytosis and acute renal failure with dehydration and hypotension requiring admission to the hospital for definitive treatment. He does see Dr. Overton nephrology for severe hypertension and creatinine elevation with chronic renal insufficiency and is currently well-controlled on blood pressure medications. Patient does have a history of Lyme disease which Dr. Ignacio manages. His reports that he began having a chronic cough after right shoulder surgery by Dr. Lucas at [place] and having significant cough since that time but all the workups in the ER and urgent care had been normal not showing any infiltrate. Subjective/Events-last exam Pt reports feeling well. No complaints. Cough has resolved. No pain. Eating and drinking well. urinating normally. Focused Exam Time of Focused Exam: 929 Objective Exam Vital Signs Vital Signs Date Time Temp Pulse Resp B/P (MAP) Pulse Ox O2 Delivery O2 Flow Rate FiO2 07/17/17 15:34 95 07/17/17 15:36 91 07/17/17 15:36 Room Air 07/17/17 15:55 2.00 07/17/17 16:00 101.5 30 126/75 (92) Capillary Refill : Less Than 3 SecondsLess Than 3 Seconds General Appearance: No Apparent Distress, WD/WN Respiratory: Lungs Clear, No Respiratory Distress Cardiovascular: Regular Rate, Rhythm, No Murmur Gastrointestinal: Normal Bowel Sounds, Non Tender, Soft Neurologic/Psychiatric: Alert, Oriented x3, No Motor/Sensory Deficits Results/Procedures Lab Patient resulted labs reviewed. Imaging: Reviewed Imaging Films Assessment/Plan Assessment and Plan Assess & Plan/Chief Complaint bilateral pneumonia Diagnosis/Problems Diagnosis/Problems (1) Dyspnea Assessment & Plan: Etiology not exactly clear CT showed pericardial thickening but no evidence on echo I discussed with Dr Jimenez today who does not feel this is pericarditis Interferon Gold and LILO pending Continue antibiotics for bilateral pneumonia and failed outpatient abx Continue steroids Qualifiers: Dyspnea type: unspecified Qualified Codes: R06.00 - Dyspnea, unspecified (2) Hypertension Status: Chronic Assessment & Plan: BP in 150s Will trend, may need to adjust medicines if remains elevated Qualifiers: Hypertension type: essential hypertension Qualified Codes: I10 - Essential (primary) hypertension (3) CKD (chronic kidney disease) Status: Chronic Assessment & Plan: At baseline Qualifiers: Chronic kidney disease stage: stage 3 (moderate) Qualified Codes: N18.3 - Chronic kidney disease, stage 3 (moderate) (4) Hypothyroidism Assessment & Plan: Continue home [place] Thyroid Clinical Quality Measures DVT/VTE Risk/Contraindication: Risk Factor Score Per Nursin RFS Level Per Nursing on Admit: 2=Moderate CANDACE JIMÉNEZ MD Jul 22, 2017 2:02 pm
[2017-07-22] MEDS: ENOXAPARIN 40 MG/0.4 ML (LOVENOX) SYR SC SCH (14:15)
[2017-07-22 16:55] VITALS: BP 135/80
[2017-07-22] MEDS: VENlafaxine XR 75 MG (EFFEXOR XR) CAP PO SCH (18:44)
[2017-07-22] MEDS: MONTELUKAST 10 MG (SINGULAIR) TAB PO SCH (21:38)
[2017-07-22] MEDS: doxAzosin 4 MG (CARDURA) TAB PO SCH (21:38)
[2017-07-22] MEDS: ACYCLOVIR 400 MG TABLET (ZOVIRAX) PO SCH (21:39)
[2017-07-23 00:46] VITALS: BP 147/69
[2017-07-23] MEDS: PIPERACILLIN SODIUM/TAZOBACTAM 4.5 GM in NS (IVPB) 100 ML IV SCH ×3 (06:36→20:46)
[2017-07-23] MEDS: THYROID 1 GRAIN (60 - 65 MG) TABLET PO SCH (06:36)
[2017-07-23] MEDS: hydrALAZINE (APRESOLINE) 25 MG TAB PO SCH ×3 (06:36→20:46)
[2017-07-23 06:45] LABS: BASOPHILS % (AUTO) 0 % (0-10); EOSINOPHILS % (AUTO) 0 % (0-10); HEMATOCRIT 32 % (40-54); HEMOGLOBIN 10.8 G/DL (13.3-17.7); LYMPHOCYTES # (AUTO) 1.6 X 10^3 (1.0-4.0); LYMPHOCYTES % (AUTO) 10 % (12-44); MEAN CORPUSCULAR HEMOGLOBIN 30 PG (25-34); MEAN CORPUSCULAR HGB CONC 33 G/DL (32-36); MEAN CORPUSCULAR VOLUME 89 FL (80-99); MEAN PLATELET VOLUME 9.7 FL (7.4-10.4); MONOCYTES # (AUTO) 0.7 X 10^3 (0.0-1.0); MONOCYTES % (AUTO) 4 % (0-12); NEUTROPHILS % (AUTO) 85 % (42-75); PLATELET COUNT 619 10^3/uL (130-400); RED BLOOD COUNT 3.62 10^6/uL (4.35-5.85); RED CELL DISTRIBUTION WIDTH 15.3 % (10.0-14.5); WHITE BLOOD COUNT 15.3 10^3/uL (4.3-11.0)
[2017-07-23] MEDS: RT-LEVALBUTEROL (XOPENEX) 1.25 MG/3 ML NEB NON-FORMULARY INH SCH ×3 (06:50→21:10)
[2017-07-23] MEDS: RT-BUDESONIDE NEBS 0.5 MG/2ML (PULMICORT) AMP INH SCH ×2 (06:50→21:10)
[2017-07-23 07:05] LABS: CALCIUM 9.2 MG/DL (8.5-10.1); CREATININE SERUM 1.7 MG/DL (0.60-1.30); POTASSIUM 4.3 MMOL/L (3.6-5.0)
--- NOTE | 2017-07-23 07:17 | Pulmonary Consultation ---
History of Present Illness History of Present Illness Date of Consultation 07/23/17 07:12 Time Seen by Provider: 07:12 Date of Admission History of Present Illness 67yo WM with hx of lyme dx, and CKD admitted from Dr. Ignacio's office secondary to fever of 102 and bilateral pneumonia failed outpatient treatment with Levaquin. He had been to urgent care and ED in [place] multiple times prior to seeing Dr. Ignacio. Pt was found to be dehydrated and hypotensive upon arrival . Pt was placed in TB isolation yesterday however he has not had any exposure to TB. He has no hemoptysis. CT of chest is not suggestive of TB. He has had negative PPD skin test in the past. I am consulted for pulmonary management. Allergies and Home Medications Allergies Coded Allergies: No Known Allergies (Unverified Allergy, Unknown, 07/31/16) Home Medications Acyclovir 400 Mg Tablet, 400 MG PO HS, (Reported) Albuterol Sulfate 1 Puff Puff, 2 PUFF IH Q4H PRN for SHORTNESS OF BREATH, ( Reported) 1 PUFF = 90 MCG Allopurinol 100 Mg Tablet, 100 MG PO DAILY, (Reported) Ascorbic Acid 500 Mg Tablet, 500 MG PO BID, (Reported) Chlorthalidone 25 Mg Tablet, 25 MG PO DAILY, (Reported) Cholecalciferol (Vitamin D3) 5,000 Unit Capsule, 10,000 UNIT PO TID, (Reported) Clobetasol Propionate/Emoll 15 Gm Cream..g., TP DAILY PRN for RASH, (Reported) Clonidine HCl 0.2 Mg Tablet, 0.2 MG PO TIDWM, (Reported) Clotrimazole/Betamethasone Dip 15 Gm Cream..g., TP DAILY PRN for BREAKOUT, ( Reported) Cyanocobalamin 1,000 Mcg/Ml Inj, 1,000 MCG IJ 1-2 X WEEKLY, (Reported) Cyclobenzaprine HCl 10 Mg Tablet, 10 MG PO TID PRN for MUSCLE SPASMS, (Reported) Doxazosin Mesylate 8 Mg Tablet, 8 MG PO HS, (Reported) Doxycycline Hyclate 100 Mg Tablet, 100 MG PO BID, (Reported) 10 DAY SUPPLY FILLED 07-16-17 Fluconazole 100 Mg Tablet, 100 MG PO [place], (Reported) Fluticasone Propionate 9.9 Ml [place].susp, 1 SPRAY NS DAILY, (Reported) 1 SPRAY EACH NARE DAILY Hydralazine HCl 50 Mg Tablet, 50 MG PO TIDWM, (Reported) Ipratropium [place] 0.2 Mg/1 Ml Solution, 0.2 MG NEB Q6H PRN for SHORTNESS OF BREATH, (Reported) Lactulose 10 Gm/15 Ml Solution, 1 TBS PO DAILY PRN for CONSTIPATION-3RD LINE, ( Reported) Levomefolate/B6/B12/Algal Oil 1 Each Capsule, 1 CAP PO BID, (Reported) Liothyronine Sodium 5 Mcg Tablet, 5 MCG PO 0800,1200, (Reported) Loratadine 10 Mg Tab.rapdis, 10 MG PO DAILY PRN for ALLERGIES, (Reported) Lutein 6 Mg Tablet, 6 MG PO DAILY, (Reported) Lysine HCl 500 Mg Tablet, 500 MG PO BID, (Reported) Mupirocin Calcium 15 Gm Cream..g., TP DAILY PRN for SORES, (Reported) Nystatin 500,000 Unit Tablet, 500,000 UNIT PO QID, (Reported) Penicillin V Potassium 500 Mg Tablet, 500 MG PO TIDWM, (Reported) Potassium Chloride 10 Meq Tab.er.prt, 10 MEQ PO 1800, (Reported) Thyroid,Pork 65 Mg Tablet, 65 MG PO DAILY, (Reported) Triamcinolone Acet 15 Gm Cr, TP DAILY PRN for RASH, (Reported) Ubidecarenone/Vit E Acetate 1 Each Capsule, 100 MG PO BID, (Reported) Venlafaxine HCl 150 Mg Cap.er.24h, 150 MG PO HS, (Reported) Past Pxrfiiq-Lsmpva-Zsijcn Hx Patient Social History Alcohol Use: Occasionally Uses Number of Drinks Today: 0 Recreational Drug Use: No Smoking Status: Never a Smoker Recent Foreign Travel: No Contact w/Someone Who Travel: No Recent Infectious Disease Expo: No Recent Hopitalizations: No Immunizations Up To Date Date of Pneumonia Vaccine: Feb 05, 2017 Date of Influenza Vaccine: Feb 05, 2017 Seasonal Allergies Seasonal Allergies: Yes Surgeries History of Surgeries: Yes Surgeries: Eye Surgery, Gallbladder Respiratory History of Respiratory Disorde: Yes Respiratory Disorders: Sleep Apnea Currently Using CPAP: Yes Cardiovascular History of Cardiac Disorders: Yes Cardiac Disorders: Hypertension Neurological History of Neurological Disord: No Reproductive System Hx Reproductive Disorders: No Genitourinary History of Genitourinary Disor: No Gastrointestinal History of Gastrointestinal Di: Yes Gastrointestinal Disorders: Gastroesophageal Reflux, Chronic Constipation, Polyps Musculoskeletal History of Musculoskeletal Dis: Yes Musculoskeletal Disorders: Arthritis, Chronic Back Pain Endocrine History of Endocrine Disorders: Yes HEENT History of HEENT Disorders: No Cancer History of Cancer: No Psychosocial History of Psychiatric Problem: No Integumentary History of Skin or Integumenta: Yes (freq fungal infection) Blood Transfusions History of Blood Disorders: No Family Medical History Significant Family History: Cancer, Hypertension Review of Systems Time Seen by Provider: 07:51 Constitutional: Fever, Chills, Sweats, Weakness, Malaise Eyes: No: Pain, Vision change, Conjunctivae inflammation, Eyelid inflammation, Other, Redness ENT: No: Ear pain, Ear discharge, Nose pain, Nose discharge, Nose congestion, Mouth pain, Mouth swelling, Throat pain, Throat swelling, Other Respiratory: Cough, Shortness of breath, SOB with excertion, Sputum (small amount of sputum. No hemoptysis), No: Hemoptysis Neurological: Weakness Exam Exam Vital Signs Date Time Temp Pulse Resp B/P (MAP) Pulse Ox O2 Delivery O2 Flow Rate FiO2 07/23/17 06:55 Room Air 07/23/17 06:50 94 Room Air 07/23/17 00:46 98.1 84 28 147/69 (95) 96 Room Air 07/22/17 21:17 96 Room Air 07/22/17 21:10 95 Room Air 07/22/17 21:00 Room Air 07/22/17 16:55 98.2 83 16 135/80 (98) 96 Room Air 07/22/17 15:26 95 Room Air 07/22/17 12:30 97.6 82 16 154/81 (105) 94 Room Air 07/22/17 08:30 98.2 85 20 153/83 (106) 95 Room Air 07/22/17 08:26 Room Air I & O 07/23/17 07:00 Intake Total 940 ml Output Total 1400 ml Balance -460 ml General Appearance: No Apparent Distress, WD/WN HEENT: PERRL/EOMI, TMs Normal, Normal ENT Inspection, Pharynx Normal Neck: Full Range of Motion, Normal Inspection, Non Tender, Supple Respiratory: Lungs Clear, No Respiratory Distress Cardiovascular: Regular Rate, Rhythm, No Murmur Capillary Refill: Less Than 3 Seconds Extremity: Normal Capillary Refill, Normal Inspection, Normal Range of Motion, Non Tender, No Calf Tenderness Neurologic/Psychiatric: Alert, Oriented x3, No Motor/Sensory Deficits Skin: Normal Color, Warm/Dry Lymphatic: No Adenopathy Results Lab Laboratory Tests 07/21/17 11:45 07/23/17 05:37 Assessment/Plan Assessment/Plan Dyspnea with pulmonary pleural effusions bilateral -Check BNP -No clinical signs of TB -D/C isolation -If TB quantaiferon comes back positive will treat as latent TB. Pneumonia -Continue Zosyn Obesity with JADEN -PT can use home CPAP CKD 254 JAYE LAMBERT DO Jul 23, 2017 07:17
[2017-07-23 08:00] VITALS: BP 136/67
[2017-07-23] MEDS: BENZONATATE 100 MG (TESSALON) CAPSULE PO SCH ×3 (08:52→20:46)
[2017-07-23] MEDS: ALLOPURINOL 100 MG (ZYLOPRIM) TAB PO SCH (08:52)
[2017-07-23] MEDS: ASPIRIN 81 MG CHEW (CHILDREN'S ASA) PO SCH (08:52)
[2017-07-23] MEDS: meTOprolol SUCCINATE 100 MG (TOPROL XL) TAB PO SCH (08:53)
[2017-07-23] MEDS: predniSONE 20 MG TAB PO SCH ×2 (08:53→20:46)
[2017-07-23] MEDS ORDERED: PIPERACILLIN SODIUM/TAZOBACTAM 4.5 GM in NS (IVPB) 100 ML IV SCH (09:00)
[2017-07-23] MEDS: FLUTICASONE NASAL SPRAY (FLONASE) 16 GM BTL NS SCH (09:15)
--- NOTE | 2017-07-23 11:17 | Progress Note-Cardiology ---
Cardiology SOAP Progress Note Subjective: Sitting up in a chair at the bedside. No c/o CP, palpitations, syncope or near syncope. Feels SOB is better today. No c/o LE edema. Objective: I&O/Vital Signs Vital Sign - Last 12Hours 07/23/17 07/23/17 07/23/17 07/23/17 06:50 06:55 08:00 08:00 Temp 98.9 Pulse 84 Resp 16 B/P (MAP) 136/67 (90) Pulse Ox 94 94 O2 Delivery Room Air Room Air Room Air Room Air 07/23/17 07/23/17 07/23/17 10:54 13:00 14:03 Pulse 86 111 O2 Delivery Room Air Intake and Output 07/22/17 23:59 Intake Total 940 ml Output Total 1400 ml Balance -460 ml Weight (Pounds): 253 Weight (Ounces): 7.0 Weight (Calculated Kilograms): 114.894243 Constitutional: AAO x 3, well-developed, well-nourished Respiratory: No accessory muscle use, rhonchi (scattered), other (diminished air entry at the bases) Cardiovascular: regular rate-rhythm, S1 and S2, systolic murmur (soft MICHELLE at card base) Gastrointestional: No tender, soft, No guarding, No rebound, audible bowel sounds Extremities: No clubbing, No cyanosis, no lower extremity edema bilateral, No significant edema Neurologic/Psychiatric: oriented x 3, grossly intact, power is 5/5 both on sides Skin: pallor, rash Results/Procedures: Labs Laboratory Tests 07/23/17 05:37: White Blood Count 15.3H, Red Blood Count 3.62L, Hemoglobin 10.8L, Hematocrit 32L , Mean Corpuscular Volume 89, Mean Corpuscular Hemoglobin 30, Mean Corpuscular Hemoglobin Concent 33, Red Cell Distribution Width 15.3H, Platelet Count 619H, Mean Platelet Volume 9.7, Neutrophils (%) (Auto) 85H, Lymphocytes (%) (Auto) 10L , Monocytes (%) (Auto) 4, Eosinophils (%) (Auto) 0, Basophils (%) (Auto) 0, Neutrophils # (Auto) 13.0H, Lymphocytes # (Auto) 1.6, Monocytes # (Auto) 0.7, Eosinophils # (Auto) 0.0, Basophils # (Auto) 0.0, Sodium Level 140, Potassium Level 4.3, Chloride Level 105, Carbon Dioxide Level 23, Anion Gap 12, Blood Urea Nitrogen 33H, Creatinine 1.70H, Estimat Glomerular Filtration Rate 41, BUN/ Creatinine Ratio 19, Glucose Level 133H, Calcium Level 9.2, B-Type Natriuretic Peptide 844.9H Microbiology 07/17/17 Blood Culture - Final, Complete No growth 07/18/17 MRSA Screen - Final, Complete MRSA not isolated A/P: Assessment: New onset of PAFlutter (documented on EKG of 07-21-17 and 07-23-17) - rate controlled Not agreeable to OAC other than ASA (discussed at great length the risk of stroke to which he verbalizes understanding and continues to refuse) Sleep apnea (CPAP tx - had not been using during this hospitalization) Bilateral pneumonia, managed by the Sold CT chest on 07/20/17: mediastinal lymphadenopathy, mild to mod pleural eff and pericard eff, and bibasilar atelectasis Echo on 07/20/17 ([address] CT chest of 07/20/17): No significant pericard eff; LVEF 65-70%; mild MR; mod dilatation of left atrium; pasp 30-35 mmHg Hypertension, improved after addition of bb to the regimen on 07/20/17 Hyponatremia, resolved with volume resuscitation (iv NS) Renal failure, probably CKD 4 Anemia of undetermined etiology, possibly related to CKD Hypertensive cardiovascular disease (with cardiomegaly on CXR and LVH on echo) No h/o CAD. Stress test of 07/31/16 did not show ischemia or infarction, LVEF 56% Liver enzyme elevation of undetermined etiology Low TSH on 07-21-17 indicative of hyperthyroidism - management per medical services Plan: * Relatively complex management * NEW onset of a-flutter (first documented on EKG of 07-21-17 and 07-23-17) - this places him at risk of CVA. We have discussed his risk of CVA d/t a-flutter at great length with him and his spouse. We have answered multiple questions. We have advise OAC. We have discussed all agents including NOAC (Eliquis, Xarelto , Pradaxa); to which they are adamantly not agreeable to. We discussed warfarin ; again they adamantly refuse. They are only agreeable to a baby ASA, which will provide some protection, but not as good as OAC. He verbalizes the implications of his decision including stroke, but remains only agreeable to ASA 81 mg. * He does have sleep apnea for which he is on CPAP, but has not been using during this hospitalization. * Place on tele * Although CT chest is reported to have shown mod pericard eff, there is no significant pericard eff on subsequent echo; also, no clinical evidence of any tamponade * BP improved after adding bb * Dr. Jimenez has discussed his CV issues with him and his and answered questions * Elevated liver enzymes of undetermined etiology * Low TSH indicative of hyperthyroidism on lab of 07-21-17 - management per medical services Physician Assessment Physician Assessment No cp or palp or syncope Shortness of breath Lungs: good bilat air entry, diminished at the bases Cor: irreg Ext: no c/c/e Neuro: chronic resting tremor A&R: * As documented in our note above that I updated at the time of this writing ( italics) and as noted below * I had a discussion with him and his regarding paroxysmal a fl/fib and the associated risk of thromboembolic stroke. We have recommended OAC. He fully understands, but refuses. Will take only aspirin * Ok to d/c from card standpoint * Outpt f/u advised in 2 weeks TIM WOODS Jul 23, 2017 11:17 ELIZA JIMENEZ MD FACP [facility] Jul 23, 2017 17:00
--- NOTE | 2017-07-23 12:17 | Progress Note-Hospitalist ---
Subjective HPI/CC On Admission Date Seen by Provider: Jul 23, 2017 Time Seen by Provider: 12:11 CC: Bilateral pneumonia failed Levaquin HPI: This is a 67-year-old white male clinic patient of Dr. 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 Ignacio's clinic with a fever of 102 and chest x-ray revealing bilateral pneumonia that had failed and progressed on Levaquin antibiotics. To note he reported to urgent care at [place] 4 times and to the ER in [place] twice prior to finally coming to Dr. Ignacio finding progressive pneumonia and findings consistent with leukocytosis and acute renal failure with dehydration and hypotension requiring admission to the hospital for definitive treatment. He does see Dr. Overton nephrology for severe hypertension and creatinine elevation with chronic renal insufficiency and is currently well-controlled on blood pressure medications. Patient does have a history of Lyme disease which Dr. Ignacio manages. His reports that he began having a chronic cough after right shoulder surgery by Dr. Lucas at [place] and having significant cough since that time but all the workups in the ER and urgent care had been normal not showing any infiltrate. Subjective/Events-last exam Pt reports doing well today. No complaints. No chest pain. No SOB. Breathing better. Eating and drinking well. Focused Exam Time of Focused Exam: 929 Objective Exam Vital Signs Vital Signs Date Time Temp Pulse Resp B/P (MAP) Pulse Ox O2 Delivery O2 Flow Rate FiO2 07/17/17 15:34 95 07/17/17 15:36 91 07/17/17 15:36 Room Air 07/17/17 15:55 2.00 07/17/17 16:00 101.5 30 126/75 (92) Capillary Refill : Less Than 3 SecondsLess Than 3 Seconds General Appearance: No Apparent Distress, WD/WN Respiratory: Lungs Clear, No Accessory Muscle Use, No Respiratory Distress Cardiovascular: No JVD, No Murmur, Irregularly Irregular Gastrointestinal: Normal Bowel Sounds, Non Tender, Soft Extremity: Non Tender, No Calf Tenderness, No Pedal Edema Neurologic/Psychiatric: Alert, Oriented x3, No Motor/Sensory Deficits, Normal Mood/Affect Results/Procedures Lab Laboratory Tests 07/23/17 05:37 Patient resulted labs reviewed. Assessment/Plan Assessment and Plan Assess & Plan/Chief Complaint bilateral pneumonia Diagnosis/Problems Diagnosis/Problems (1) Bilateral pneumonia Status: Acute Assessment & Plan: Will complete antibiotics tomorrow Plan to DC then Qualifiers: Pneumonia type: due to unspecified organism Lung location: lower lobe of lung Qualified Codes: J18.1 - Lobar pneumonia, unspecified organism (2) Atrial flutter Assessment & Plan: New diagnosis Managed by Cardiology Patient declined OAC and wants only ASA Continue Metoprolol Qualifiers: Atrial flutter type: unspecified Qualified Codes: I48.92 - Unspecified atrial flutter (3) Dyspnea Assessment & Plan: Likely due to pneumonia and possibly diastolic heart failure CT showed pericardial thickening but no evidence on echo I discussed with Dr Jimenez today who does not feel this is pericarditis Due to concern for pericarditis Interferon Gold and LILO pending Discussed with Dr Nicolas who does not feel this is consistent with TB- requests to take off TB precautions Continue antibiotics for bilateral pneumonia and failed outpatient abx Continue steroids Qualifiers: Dyspnea type: unspecified Qualified Codes: R06.00 - Dyspnea, unspecified (4) Hypertension Status: Chronic Assessment & Plan: Improved today Qualifiers: Hypertension type: essential hypertension Qualified Codes: I10 - Essential (primary) hypertension (5) CKD (chronic kidney disease) Status: Chronic Assessment & Plan: At baseline Qualifiers: Chronic kidney disease stage: stage 3 (moderate) Qualified Codes: N18.3 - Chronic kidney disease, stage 3 (moderate) (6) Hypothyroidism Assessment & Plan: Continue home [place] Thyroid Qualifiers: Hypothyroidism type: unspecified Qualified Codes: E03.9 - Hypothyroidism, unspecified Clinical Quality Measures DVT/VTE Risk/Contraindication: Risk Factor Score Per Nursin RFS Level Per Nursing on Admit: 2=Moderate CANDACE JIMÉNEZ MD Jul 23, 2017 12:17 pm
[2017-07-23] MEDS: ENOXAPARIN 40 MG/0.4 ML (LOVENOX) SYR SC SCH (14:52)
[2017-07-23 16:00] VITALS: BP 162/83
[2017-07-23] MEDS: VENlafaxine XR 75 MG (EFFEXOR XR) CAP PO SCH (17:14)
[2017-07-23 20:00] VITALS: BP 172/89
[2017-07-23] MEDS: doxAzosin 4 MG (CARDURA) TAB PO SCH (20:46)
[2017-07-23] MEDS: MONTELUKAST 10 MG (SINGULAIR) TAB PO SCH (20:46)
[2017-07-23] MEDS: ACYCLOVIR 400 MG TABLET (ZOVIRAX) PO SCH (20:46)
[2017-07-24] VITALS: BP 144/75
[2017-07-24 03:50] VITALS: BP 141/77
--- NOTE | 2017-07-24 05:41 | Pulmonary Progress Note ---
Subjective Time Seen by Provider: 06:37 Subjective/Events-last exam Pt is laying in bed on room air. No complications noted. Focused Exam Time of Focused Exam: 929 Exam Exam Vital Signs Date Time Temp Pulse Resp B/P (MAP) Pulse Ox O2 Delivery O2 Flow Rate FiO2 07/24/17 03:50 98.2 88 17 141/77 (98) 95 Room Air 07/24/17 01:00 90 07/24/17 00:00 98.1 83 17 144/75 (98) 94 Room Air 07/23/17 21:10 Room Air 07/23/17 21:10 Room Air 07/23/17 21:00 Room Air 07/23/17 20:00 98.7 86 18 172/89 (116) 96 Room Air 07/23/17 19:00 85 07/23/17 16:00 98.6 86 20 162/83 (109) 97 Room Air 07/23/17 14:03 Room Air 07/23/17 13:00 111 07/23/17 10:54 86 07/23/17 08:00 98.9 84 16 136/67 (90) 94 Room Air 07/23/17 08:00 Room Air 07/23/17 06:55 Room Air 07/23/17 06:50 94 Room Air I & O 07/24/17 07:00 Intake Total 1160 ml Output Total 1125 ml Balance 35 ml General Appearance: No Apparent Distress, WD/WN HEENT: PERRL/EOMI, TMs Normal, Normal ENT Inspection, Pharynx Normal Neck: Full Range of Motion, Normal Inspection, Non Tender, Supple Respiratory: Lungs Clear, No Accessory Muscle Use, No Respiratory Distress Cardiovascular: No JVD, No Murmur, Irregularly Irregular Capillary Refill: Less Than 3 Seconds Extremity: Non Tender, No Calf Tenderness, No Pedal Edema Neurologic/Psychiatric: Alert, Oriented x3, No Motor/Sensory Deficits, Normal Mood/Affect Skin: Normal Color, Warm/Dry Lymphatic: No Adenopathy Results Lab Laboratory Tests 07/23/17 05:37 Assessment/Plan Assessment/Plan Dyspnea with pulmonary pleural effusions bilateral -No clinical signs of TB -D/C isolation -If TB quantaiferon comes back positive will treat as latent TB. Pneumonia -D/C Zosyn Obesity with JADEN -PT can use home CPAP CKD 232 Pt is ok for discharge from pulmonary standpoint. I will see him in office in 2- 3wks. JAYE LAMBERT DO Jul 24, 2017 05:41
[2017-07-24] MEDS ORDERED: KCL 20 MEQ TAB (K-DUR) PO ONE (05:45)
[2017-07-24] MEDS ORDERED: FUROSEMIDE 40 MG/4 ML INJ (LASIX) IVP ONE (05:45)
[2017-07-24 05:53] LABS: BASOPHILS % (AUTO) 0 % (0-10); EOSINOPHILS % (AUTO) 0 % (0-10); HEMATOCRIT 32 % (40-54); HEMOGLOBIN 10.7 G/DL (13.3-17.7); LYMPHOCYTES # (AUTO) 1.8 X 10^3 (1.0-4.0); LYMPHOCYTES % (AUTO) 11 % (12-44); MEAN CORPUSCULAR HEMOGLOBIN 30 PG (25-34); MEAN CORPUSCULAR HGB CONC 33 G/DL (32-36); MEAN CORPUSCULAR VOLUME 89 FL (80-99); MEAN PLATELET VOLUME 9.4 FL (7.4-10.4); MONOCYTES # (AUTO) 0.6 X 10^3 (0.0-1.0); MONOCYTES % (AUTO) 4 % (0-12); NEUTROPHILS # (AUTO) 13.5 X 10^3 (1.8-7.8); NEUTROPHILS % (AUTO) 85 % (42-75); PLATELET COUNT 631 10^3/uL (130-400); RED BLOOD COUNT 3.62 10^6/uL (4.35-5.85); RED CELL DISTRIBUTION WIDTH 15.2 % (10.0-14.5); WHITE BLOOD COUNT 15.9 10^3/uL (4.3-11.0)
[2017-07-24 06:12] LABS: CREATININE SERUM 1.7 MG/DL (0.60-1.30); POTASSIUM 4.2 MMOL/L (3.6-5.0)
[2017-07-24] MEDS: RT-LEVALBUTEROL (XOPENEX) 1.25 MG/3 ML NEB NON-FORMULARY INH SCH (06:30)
[2017-07-24] MEDS: RT-BUDESONIDE NEBS 0.5 MG/2ML (PULMICORT) AMP INH SCH (06:30)
[2017-07-24] MEDS: THYROID 1 GRAIN (60 - 65 MG) TABLET PO SCH (06:49)
[2017-07-24] MEDS: hydrALAZINE (APRESOLINE) 25 MG TAB PO SCH (06:49)
[2017-07-24] MEDS: PIPERACILLIN SODIUM/TAZOBACTAM 4.5 GM in NS (IVPB) 100 ML IV SCH (06:49)
[2017-07-24] MEDS ORDERED: MONT10TA24 PO (07:59)
[2017-07-24] MEDS ORDERED: METO-395 PO (07:59)
[2017-07-24] MEDS ORDERED: ASPI-999 PO (07:59)
[2017-07-24] MEDS ORDERED: BUDE180A IH (07:59)
[2017-07-24 08:00] VITALS: BP 169/86
--- NOTE | 2017-07-24 08:50 | Discharge Summary-Hospitalist ---
Diagnosis/Chief Complaint Date of Admission Jul 17, 2017 at 3:10 pm Date of Discharge Discharge Date: Jul 24, 2017 Admission Diagnosis Bilateral pneumonia failed Levaquin as outpatient for 10 days Hypertension Chronic renal insufficiency sees nephrology Dr. Overton Acute dehydration Acute hypotension due to dehydration Fever Plan: IV fluids to be hep-locked Transfer to fourth floor Oxygen supplementation Nebulizer treatments Home medications Discharge Diagnosis bilateral pneumonia (1) Bilateral pneumonia Status: Acute Assessment & Plan: Will complete antibiotics tomorrow Plan to DC then (2) Atrial flutter Assessment & Plan: New diagnosis Managed by Cardiology Patient declined OAC and wants only ASA Continue Metoprolol (3) Dyspnea Assessment & Plan: Likely due to pneumonia and possibly diastolic heart failure CT showed pericardial thickening but no evidence on echo I discussed with Dr Jimenez today who does not feel this is pericarditis Due to concern for pericarditis Interferon Gold and LILO pending Discussed with Dr Nicolas who does not feel this is consistent with TB- requests to take off TB precautions Continue antibiotics for bilateral pneumonia and failed outpatient abx Continue steroids (4) Hypertension Status: Chronic Assessment & Plan: Improved today (5) CKD (chronic kidney disease) Status: Chronic Assessment & Plan: At baseline (6) Hypothyroidism Assessment & Plan: Continue home [place] Thyroid Discharge Summary Discharge Physical Exam Allergies: Coded Allergies: No Known Allergies (Unverified Allergy, Unknown, 07/31/16) Vitals & I&Os Vital Signs Date Time Temp Pulse Resp B/P (MAP) Pulse Ox O2 Delivery O2 Flow Rate FiO2 07/24/17 08:00 98.4 90 20 169/86 (113) 96 Room Air 07/19/17 12:00 2.00 Hospital Course Labs (last 24 hrs) Laboratory Tests 07/24/17 05:12: White Blood Count 15.9H, Red Blood Count 3.62L, Hemoglobin 10.7L, Hematocrit 32L , Mean Corpuscular Volume 89, Mean Corpuscular Hemoglobin 30, Mean Corpuscular Hemoglobin Concent 33, Red Cell Distribution Width 15.2H, Platelet Count 631H, Mean Platelet Volume 9.4, Neutrophils (%) (Auto) 85H, Lymphocytes (%) (Auto) 11L , Monocytes (%) (Auto) 4, Eosinophils (%) (Auto) 0, Basophils (%) (Auto) 0, Neutrophils # (Auto) 13.5H, Lymphocytes # (Auto) 1.8, Monocytes # (Auto) 0.6, Eosinophils # (Auto) 0.0, Basophils # (Auto) 0.0, Sodium Level 140, Potassium Level 4.2, Chloride Level 107, Carbon Dioxide Level 25, Anion Gap 8, Blood Urea Nitrogen 34H, Creatinine 1.70H, Estimat Glomerular Filtration Rate 41, BUN/ Creatinine Ratio 20, Glucose Level 179H, Calcium Level 9.0 Microbiology 07/17/17 Blood Culture - Final, Complete No growth 07/18/17 MRSA Screen - Final, Complete MRSA not isolated Patient resulted labs reviewed. Pending Labs Laboratory Tests 07/24/17 05:12: White Blood Count 15.9, Red Blood Count 3.62, Hemoglobin 10.7, Hematocrit 32, Mean Corpuscular Volume 89, Mean Corpuscular Hemoglobin 30, Mean Corpuscular Hemoglobin Concent 33, Red Cell Distribution Width 15.2, Platelet Count 631, Mean Platelet Volume 9.4, Neutrophils (%) (Auto) 85, Lymphocytes (%) (Auto) 11, Monocytes (%) (Auto) 4, Eosinophils (%) (Auto) 0, Basophils (%) (Auto) 0, Neutrophils # (Auto) 13.5, Lymphocytes # (Auto) 1.8, Monocytes # (Auto) 0.6, Eosinophils # (Auto) 0.0, Basophils # (Auto) 0.0, Sodium Level 140, Potassium Level 4.2, Chloride Level 107, Carbon Dioxide Level 25, Anion Gap 8, Blood Urea Nitrogen 34, Creatinine 1.70, Estimat Glomerular Filtration Rate 41, BUN/ Creatinine Ratio 20, Glucose Level 179, Calcium Level 9.0 Discharge Home Medications: Active Scripts Active Pulmicort Flexhaler (Budesonide) 180 Mcg Aer.pow.ba 180 Mcg IH BID Montelukast Sodium 10 Mg Tablet 10 Mg PO HS Aspirin 81 Mg Tab.chew 81 Mg PO DAILY Metoprolol Succinate 100 Mg Tab.er.24h 100 Mg PO DAILY Reported Constulose (Lactulose) 10 Gm/15 Ml Solution 1 Tbs PO DAILY PRN Alavert (Loratadine) 10 Mg Tab.rapdis 10 Mg PO DAILY PRN Vitamin C (Ascorbic Acid) 500 Mg Tablet 500 Mg PO BID Co Q-10 100 mg Softgel (Ubidecarenone/Vit E Acetate) 1 Each Capsule 100 Mg PO BID Vitamin D3 (Cholecalciferol (Vitamin D3)) 5,000 Unit Capsule 10,000 Unit PO TID Lutein 6 Mg Tablet 6 Mg PO DAILY Mupirocin (Mupirocin Calcium) 15 Gm Cream..g. TP DAILY PRN Clotrimazole-Betamethasone Crm (Clotrimazole/Betamethasone Dip) 15 Gm Cream..g. TP DAILY PRN Clobetasol Emollient 0.05% Crm (Clobetasol Propionate/Emoll) 15 Gm Cream..g. TP DAILY PRN Triamcinolone Acetonide 0.1% Cream (Triamcinolone Acet) 15 Gm Cr TP DAILY PRN Cyanocobalamin Injection (Cyanocobalamin) 1,000 Mcg/Ml Inj 1,000 Mcg IJ 1-2 X WEEKLY Flonase Allergy Relief (Fluticasone Propionate) 9.9 Ml [place].susp 1 [place] NS DAILY 1 SPRAY EACH NARE DAILY Allopurinol 100 Mg Tablet 100 Mg PO DAILY Clonidine HCl 0.2 Mg Tablet 0.2 Mg PO TIDWM Cyclobenzaprine HCl 10 Mg Tablet 10 Mg PO TID PRN Proair Hfa (Albuterol Sulfate) 1 Puff Puff 2 Puff IH Q4H PRN 1 PUFF = 90 MCG Ipratropium [place] 0.2 Mg/1 Ml Solution 0.2 Mg NEB Q6H PRN Doxycycline Hyclate 100 Mg Tablet 100 Mg PO BID 10 Days 10 DAY SUPPLY FILLED 07-16-17 l-Lysine (Lysine HCl) 500 Mg Tablet 500 Mg PO BID Liothyronine Sodium 5 Mcg Tablet 5 Mcg PO 0800,1200 Chlorthalidone 25 Mg Tablet 25 Mg PO DAILY Hydralazine HCl 50 Mg Tablet 50 Mg PO TIDWM Nature-Throid (Thyroid,Pork) 65 Mg Tablet 65 Mg PO DAILY Nystatin 500,000 Unit Tablet 500,000 Unit PO QID Acyclovir 400 Mg Tablet 400 Mg PO HS Effexor Xr (Venlafaxine HCl) 150 Mg Cap.er.24h 150 Mg PO HS Doxazosin Mesylate 8 Mg Tablet 8 Mg PO HS Metanx Capsule (Levomefolate/B6/B12/Algal Oil) 1 Each Capsule 1 Cap PO BID Penicillin V Potassium 500 Mg Tablet 500 Mg PO TIDWM Klor-Con M10 (Potassium Chloride) 10 Meq Tab.er.prt 10 Meq PO 1800 Fluconazole 100 Mg Tablet 100 Mg PO [place] Instructions to patient/family Please see electronic discharge instructions given to patient. Clinical Quality Measures DVT/VTE Risk/Contraindication: Risk Factor Score Per Nursin RFS Level Per Nursing on Admit: 2=Moderate Problem Qualifiers (1) Bilateral pneumonia: Pneumonia type: due to unspecified organism Lung location: lower lobe of lung Qualified Codes: J18.1 - Lobar pneumonia, unspecified organism (2) Atrial flutter: Atrial flutter type: unspecified Qualified Codes: I48.92 - Unspecified atrial flutter (3) Dyspnea: Dyspnea type: unspecified Qualified Codes: R06.00 - Dyspnea, unspecified (4) Hypertension: Hypertension type: essential hypertension Qualified Codes: I10 - Essential ( primary) hypertension (5) CKD (chronic kidney disease): Chronic kidney disease stage: stage 3 (moderate) Qualified Codes: N18.3 - Chronic kidney disease, stage 3 (moderate) (6) Hypothyroidism: Hypothyroidism type: unspecified Qualified Codes: E03.9 - Hypothyroidism, unspecified CANDACE JIMÉNEZ MD Jul 24, 2017 8:50 am
--- NOTE | 2017-07-24 08:53 | Progress Note-Cardiology ---
Cardiology SOAP Progress Note Subjective: Feels better compared to time of admission Denies cp or palp or syncope Denies ankle swelling Shortness of breath much improved Objective: I&O/Vital Signs Vital Sign - Last 12Hours 07/23/17 07/23/17 07/23/17 07/24/17 21:00 21:10 21:10 00:00 Temp 98.1 Pulse 83 Resp 17 B/P (MAP) 144/75 (98) Pulse Ox 94 O2 Delivery Room Air Room Air Room Air Room Air 07/24/17 07/24/17 07/24/17 07/24/17 01:00 03:50 06:30 06:35 Temp 98.2 Pulse 90 88 Resp 17 B/P (MAP) 141/77 (98) Pulse Ox 95 97 98 O2 Delivery Room Air Room Air Room Air 07/24/17 07/24/17 07:00 08:00 Temp 98.4 Pulse 91 90 Resp 20 B/P (MAP) 169/86 (113) Pulse Ox 96 O2 Delivery Room Air Intake and Output 07/24/17 00:00 Intake Total 1160 ml Output Total 1125 ml Balance 35 ml Weight (Pounds): 255 Weight (Ounces): 3.0 Weight (Calculated Kilograms): 115.637063 Constitutional: AAO x 3, well-developed, well-nourished Respiratory: No accessory muscle use, rhonchi (scattered), other (diminished air entry at the bases) Cardiovascular: regular rate-rhythm, S1 and S2, systolic murmur (soft MICHELLE at card base) Gastrointestional: No tender, soft, No guarding, No rebound, audible bowel sounds Extremities: No clubbing, No cyanosis, no lower extremity edema bilateral, No significant edema Neurologic/Psychiatric: oriented x 3, other (chronic resting tremor), grossly intact, power is 5/5 both on sides Skin: pallor, rash Results/Procedures: Labs Laboratory Tests 07/24/17 05:12: White Blood Count 15.9H, Red Blood Count 3.62L, Hemoglobin 10.7L, Hematocrit 32L , Mean Corpuscular Volume 89, Mean Corpuscular Hemoglobin 30, Mean Corpuscular Hemoglobin Concent 33, Red Cell Distribution Width 15.2H, Platelet Count 631H, Mean Platelet Volume 9.4, Neutrophils (%) (Auto) 85H, Lymphocytes (%) (Auto) 11L , Monocytes (%) (Auto) 4, Eosinophils (%) (Auto) 0, Basophils (%) (Auto) 0, Neutrophils # (Auto) 13.5H, Lymphocytes # (Auto) 1.8, Monocytes # (Auto) 0.6, Eosinophils # (Auto) 0.0, Basophils # (Auto) 0.0, Sodium Level 140, Potassium Level 4.2, Chloride Level 107, Carbon Dioxide Level 25, Anion Gap 8, Blood Urea Nitrogen 34H, Creatinine 1.70H, Estimat Glomerular Filtration Rate 41, BUN/ Creatinine Ratio 20, Glucose Level 179H, Calcium Level 9.0 Microbiology 07/17/17 Blood Culture - Final, Complete No growth 07/18/17 MRSA Screen - Final, Complete MRSA not isolated Laboratory Tests 07/23/17 05:37 07/24/17 05:12 A/P: Assessment: New onset of PAFlutter (documented on EKG of 07-21-17 and 07-23-17) - rate controlled Not agreeable to OAC other than ASA (discussed at great length the risk of stroke to which he verbalizes understanding and continues to refuse) Sleep apnea (CPAP tx - had not been using during this hospitalization) Bilateral pneumonia, managed by the [facility] [place] CT chest on 07/20/17: mediastinal lymphadenopathy, mild to mod pleural eff and pericard eff, and bibasilar atelectasis Echo on 07/20/17 ([address] chest of 07/20/17): No significant pericard eff; LVEF 65-70%; mild MR; mod dilatation of left atrium; pasp 30-35 mmHg Hypertension, improved after addition of bb to the regimen on 07/20/17 Hyponatremia, resolved with volume resuscitation (iv NS) Renal failure, probably CKD 4 Anemia of undetermined etiology, possibly related to CKD Hypertensive cardiovascular disease (with cardiomegaly on CXR and LVH on echo) No h/o CAD. Stress test of 07/31/16 did not show ischemia or infarction, LVEF 56% Liver enzyme elevation of undetermined etiology Low TSH on 07-21-17 indicative of hyperthyroidism - management per medical services Plan: * Continue current card regimen * Ok for d/c from card standpoint * F/u at our office in 2 weeks * Low TSH indicative of hyperthyroidism on lab of 07-21-17 - management per medical services ELIZA FREITAS MD FACP [facility] Jul 24, 2017 08:53
[2017-07-24] MEDS: ALLOPURINOL 100 MG (ZYLOPRIM) TAB PO SCH (09:48)
[2017-07-24] MEDS: BENZONATATE 100 MG (TESSALON) CAPSULE PO SCH (09:49)
[2017-07-24] MEDS: ASPIRIN 81 MG CHEW (CHILDREN'S ASA) PO SCH (09:49)
[2017-07-24] MEDS: meTOprolol SUCCINATE 100 MG (TOPROL XL) TAB PO SCH (09:49)
[2017-07-24] MEDS: FLUTICASONE NASAL SPRAY (FLONASE) 16 GM BTL NS SCH (09:51)
[2017-07-24 10:05] VITALS: BP 134/78
[2017-07-24 12:00] VITALS: BP 153/90
== END 2017-07-24 12:50 | disposition home or self-care (01) | DRG 194 ==
LOC: ICU 15:10 → 4TH 07-18 12:10
PROVIDERS: ADMIT Internal Medicine; ATTEND Internal Medicine
DX: J18.9 Pneumonia, unspecified organism (principal); E87.1 Hypo-osmolality and hyponatremia; I13.0 Hypertensive heart and chronic kidney disease with heart failure and stage 1 through stage 4 chronic kidney disease, or unspecified chronic kidney disease; N18.3 Chronic kidney disease, stage 3 (moderate); J45.901 Unspecified asthma with (acute) exacerbation; N17.9 Acute kidney failure, unspecified; J90 Pleural effusion, not elsewhere classified; I48.92 Unspecified atrial flutter; D63.1 Anemia in chronic kidney disease; Z82.49 Family history of ischemic heart disease and other diseases of the circulatory system; K59.09 Other constipation; K21.9 Gastro-esophageal reflux disease without esophagitis; Z86.010 Personal history of colon polyps; E86.0 Dehydration; I95.9 Hypotension, unspecified; D72.829 Elevated white blood cell count, unspecified; T38.0X5A Adverse effect of glucocorticoids and synthetic analogues, initial encounter; G25.1 Drug-induced tremor; E66.9 Obesity, unspecified; G47.33 Obstructive sleep apnea (adult) (pediatric); Z68.37 Body mass index [BMI] 37.0-37.9, adult; E03.9 Hypothyroidism, unspecified
CPT/HCPCS: 36415; 71046; 71250; 80048; 80053; 80202; 81000; 82550; 82805; 82962; 83605; 83880; 84439; 84443; 84484; 85007; 85025; 85027; 85610; 85652; 85730; 86038; 86141; 86480; 87040; 87081; 93005; 93306; 94640; 94664; 94760; 94761

== ENCOUNTER → 2017-07-17 | Outpatient (CLI) | payer OTHER, MEDICARE ==
[~2017-07-17] MED LIST changes: +ACHD5005 PO; +ALLO100T PO; +ASCO500T6 PO; +CHLO25TA22 PO; +CHOL5000 PO; +CLOB15CR3 TP; +CLON0.2T PO; +CLOT15CR6 TP; +CNC1KV IJ; +CYCL10TA9 PO; +DOXY100T2 PO; +FLUT9.9S NS; -HYDR-3812 PO; +IPRA0.2S51 NEB; +LACT10SO64 PO; +LIOT5TAB3 PO; +LORA10TA44 PO; +LUTE6TAB PO; +LYSI500T37 PO; +MUPI15CR11 TP; +RT-ALBUINH IH; +SULF1TAB35 PO; +TR1C15 TP; +UBID1CAP53 PO
--- NOTE | 2017-07-17 12:10 | Diagnostic Imaging Report ---
Clinical indication: A patient with cough and pneumonia. Exam: Chest x-ray PA and lateral views. Comparison: None. Findings: There are small bilateral pleural effusions and mild bibasilar infiltrates (left side more than the right). There is mild cardiomegaly with no significant pulmonary vasculature. There is moderately hypertrophic spurs seen throughout the thoracic spine. There is lower cervical anterior disc fusion seen. Impression: 1: Concern for mild bibasilar infiltrates (left side more than the right) and small bilateral pleural effusions. 2: Cardiomegaly with no significant pulmonary vascular congestion. Dictated by: Dictated on workstation # [id number]
[2017-07-17 12:25] LABS: BASOPHILS % (AUTO) 0 % (0-10); EOSINOPHILS % (AUTO) 0 % (0-10); HEMATOCRIT 31 % (40-54); HEMOGLOBIN 10.6 G/DL (13.3-17.7); LYMPHOCYTES % (AUTO) 7 % (12-44); MEAN CORPUSCULAR HEMOGLOBIN 30 PG (25-34); MEAN CORPUSCULAR HGB CONC 34 G/DL (32-36); MEAN CORPUSCULAR VOLUME 88 FL (80-99); MEAN PLATELET VOLUME 9.6 FL (7.4-10.4); MONOCYTES # (AUTO) 1.2 X 10^3 (0.0-1.0); MONOCYTES % (AUTO) 9 % (0-12); NEUTROPHILS # (AUTO) 11.6 X 10^3 (1.8-7.8); NEUTROPHILS % (AUTO) 84 % (42-75); PLATELET COUNT 438 10^3/uL (130-400); RED CELL DISTRIBUTION WIDTH 14.9 % (10.0-14.5); WHITE BLOOD COUNT 13.9 10^3/uL (4.3-11.0)
[2017-07-17 12:42] LABS: ALBUMIN 3.5 GM/DL (3.2-4.5); BILIRUBIN,TOTAL 1.7 MG/DL (0.1-1.0); CALCIUM 9.1 MG/DL (8.5-10.1); CREATININE SERUM 2.04 MG/DL (0.60-1.30); POTASSIUM 4.4 MMOL/L (3.6-5.0); TOTAL PROTEIN 7.4 GM/DL (6.4-8.2)
[2017-07-17 12:58] LABS: NEUTROPHILS % (MANUAL) 82 %
[2017-07-17 12:59] LABS: BAND NEUTROPHILS 1 %; LYMPHOCYTES % (MANUAL) 13 %; MONOCYTES % (MANUAL) 4 %; RBC MORPH NORMAL
== END ==
LOC: RAD 11:30
PROVIDERS: ATTEND Internal Medicine
DX: J18.9 Pneumonia, unspecified organism (principal); N18.3 Chronic kidney disease, stage 3 (moderate); J90 Pleural effusion, not elsewhere classified; I51.7 Cardiomegaly
CPT/HCPCS: 36415; 71046; 80053; 83605; 85007; 85027; 87040

== ENCOUNTER → 2017-09-17 | Outpatient (CLI) | payer OTHER, MEDICARE ==
[~2017-09-17] MED LIST changes: +ALLO100T PO; +ASCO500T6 PO; +ASPI-999 PO; +BUDE180A IH; +CHOL5000 PO; +CLOB15CR3 TP; +CLON0.2T PO; +CLOT15CR6 TP; +CNC1KV IJ; +CYCL10TA9 PO; +DOXY100T2 PO; +FLUT9.9S NS; +IPRA0.2S51 NEB; +LACT10SO64 PO; +LORA10TA44 PO; +LUTE6TAB PO; +METO-395 PO; +MONT10TA24 PO; +MUPI15CR11 TP; -PIPERACILLIN SODIUM/TAZOBACTAM 4.5 GM in NS (IVPB) 100 ML IV NR; +RT-ALBUINH IH; +TR1C15 TP; +UBID1CAP53 PO
== END ==
LOC: CARD 11:29
PROVIDERS: ATTEND Internal Medicine Cardiovascular Disease
DX: I13.0 Hypertensive heart and chronic kidney disease with heart failure and stage 1 through stage 4 chronic kidney disease, or unspecified chronic kidney disease (principal); I50.30 Unspecified diastolic (congestive) heart failure; N18.4 Chronic kidney disease, stage 4 (severe); R60.0 Localized edema; D64.9 Anemia, unspecified; K80.20 Calculus of gallbladder without cholecystitis without obstruction; G47.33 Obstructive sleep apnea (adult) (pediatric); E66.8 Other obesity; Z86.39 Personal history of other endocrine, nutritional and metabolic disease; Z86.73 Personal history of transient ischemic attack (TIA), and cerebral infarction without residual deficits

== ENCOUNTER → 2017-09-24 | Outpatient (CLI) | payer OTHER, MEDICARE ==
--- NOTE | 2017-09-24 15:31 | Diagnostic Imaging Report ---
PROCEDURE: US Renal Bilateral. TECHNIQUE: Multiple real-time grayscale images were obtained over the kidneys in various projections bilaterally. INDICATION: Chronic kidney disease, hypertension. FINDINGS: There are no prior renal ultrasound examinations available for comparison. Both kidneys are identified. The right kidney measures 11.2 x 5.4 x 5.5 cm while the left kidney is estimated to be 11.3 x 5.9 x 5.1 cm. There is no evidence for a solid renal mass or for hydronephrosis of either kidney. The renal cortices are somewhat thinned but normal in echogenicity. There is no shadowing from the kidneys to suggest nephrolithiasis. The bladder is imaged during the course of the exam. The bladder is fairly well distended. There is no obvious bladder mass. Both ureteral jets are noted. IMPRESSION: 1. There is no evidence for a solid renal mass or for an acute abnormality of either kidney. 2. The renal cortices are thinned but normal in echogenicity. 3. There is no obvious bladder abnormality present. Dictated by: Dictated on workstation # [id number]
== END ==
LOC: RAD 10:36
PROVIDERS: ATTEND Internal Medicine Nephrology
DX: I12.9 Hypertensive chronic kidney disease with stage 1 through stage 4 chronic kidney disease, or unspecified chronic kidney disease (principal); N18.3 Chronic kidney disease, stage 3 (moderate); D63.1 Anemia in chronic kidney disease
CPT/HCPCS: 76770; 93306

== ENCOUNTER → 2018-08-20 | Outpatient (CLI) | payer MEDICARE, OTHER ==
[~2018-08-20] MED LIST changes: -LOSA100T28 PO; +LOSA100T57 PO
--- NOTE | 2018-08-20 16:12 | Diagnostic Imaging Report ---
INDICATION: ASBESTOS EXPOSURE COMPARISON: 07/19/2017 FINDINGS: Frontal and lateral views of the chest demonstrate normal heart size and pulmonary vascularity. The lungs are clear. There are no signs of infiltrate, pleural effusions or pneumothoraces. The visualized osseous structures show no acute abnormalities. IMPRESSION: 1. No acute process. No signs of infiltrates, effusions or pneumothoraces. Dictated by: Dictated on workstation # [id number]
== END ==
LOC: RAD 15:48
PROVIDERS: ATTEND Nurse Practitioner Family
DX: Z77.090 Contact with and (suspected) exposure to asbestos (principal)
CPT/HCPCS: 71046

== ENCOUNTER → 2019-06-29 | Outpatient (CLI) | payer MEDICARE ==
[~2019-06-29] MED LIST changes: +LIOT5TAB10 PO; -LIOT5TAB3 PO; -METO-395 PO; -MONT10TA24 PO; +MONT10TA26 PO; +MTP100TCR PO
--- NOTE | 2019-06-29 16:08 | Diagnostic Imaging Report ---
PROCEDURE: CT chest without contrast. TECHNIQUE: Multiple contiguous axial images were obtained through the chest without the use of intravenous contrast. Auto Exposure Controls were utilized during the CT exam to meet ALARA standards for radiation dose reduction. DATE: June 29, 2019. COMPARISON: Chest radiographs August 20, 2018. CT chest July 20, 2017. INDICATION: 68-year-old male, shortness of breath. History of asbestos exposure. PROCEDURE: Axial noncontrasted CT images of the chest. Noncontrasted limits the evaluation of the mediastinum and vascular structures. FINDINGS: There is no identified pulmonary nodule. There is no lung mass. There is no focal airspace consolidation. There is no pneumothorax. There is no pleural effusion. The central airways are patent. There are calcified mediastinal and hilar lymph nodes, consistent with sequela of prior granulomatous disease. The heart is not enlarged. There is no pericardial effusion. There is no identified abnormally enlarged noncalcified mediastinal or axillary lymph node specifically meeting CT size criteria for adenopathy. There is mild bilateral gynecomastia. The patient is status post cholecystectomy. Additional limited evaluation of the imaged portions of the upper abdomen is unremarkable. There are degenerative changes of the spine. There is advanced bilateral glenohumeral arthritis. There is no identified acute bony abnormality. IMPRESSION: 1. No identified acute cardiopulmonary abnormality. 2. No concerning pulmonary nodule or lung mass. Dictated by: Dictated on workstation # [id number]
== END ==
LOC: RAD 15:39
PROVIDERS: ATTEND Internal Medicine
DX: R06.02 Shortness of breath (principal); Z77.090 Contact with and (suspected) exposure to asbestos; Z90.49 Acquired absence of other specified parts of digestive tract
CPT/HCPCS: 71250